=== PATIENT | male | born 1950 | race Caucasian/White ===

== ENCOUNTER 2020-12-21 09:50 | Emergency (ER) | payer OTHER ==
[~2020-12-21] VITALS: Ht 177.8 cm; Wt 90.7 kg
[2020-12-21 10:13] LABS: Source, Urine Catheter
[2020-12-21 10:20] LABS: Appearance, Urine Hazy (Clear); Bilirubin, Urine Neg (Neg); Blood, Urine 5+ (Neg); Color, Urine Amber (P-Yellow); Glucose Qualitative, Urine Neg (Neg); Ketones, Urine 2+ (Neg); Leukocyte Esterase, Urine 1+ (Neg); Nitrite, Urine Neg (Neg); Protein, Urine 3+ (Neg); Specific Gravity, Urine 1.025 (1.003-1.022); Urobilinogen, Urine NORM (Normal)
[2020-12-21 10:23] LABS: BASOPHILS ABSOLUTE AUTO 0.02 K/mm3 (0.00-0.23); BASOPHILS PERCENT AUTO 0 % (0-2); EOSINOPHILS PERCENT AUTO 0 % (0-6); Hematocrit 42.7 % (37.0-53.0); Hemoglobin 15.5 g/dL (13.5-17.5); IMMATURE GRAN ABSOLUTE AUTO 0.03 K/mm3 (0.00-0.10); IMMATURE GRAN PERCENT AUTO 0 % (0-1); LYMPHOCYTES ABSOLUTE AUTO 1.27 K/mm3 (0.84-5.20); LYMPHOCYTES PERCENT AUTO 14 % (21-46); MONOCYTES ABSOLUTE AUTO 0.95 K/mm3 (0.16-1.47); MONOCYTES PERCENT AUTO 10 % (4-13); Mean Corpuscular HGB 32.7 pg (26.0-34.0); Mean Corpuscular HGB Conc 36.3 g/dL (31.5-36.5); Mean Corpuscular Volume 90 fL (80-100); Mean Platelet Volume 9.9 fL (9.1-12.4); NEUTROPHILS ABSOLUTE AUTO 7.01 K/mm3 (1.96-9.15); NEUTROPHILS PERCENT AUTO 76 % (41-73); Platelet Count 148 K/mm3 (150-400); RDW Coefficient Variation 11.9 % (11.7-14.2); RDW Standard Deviation 39.5 fL (35.1-46.3); Red Blood Cell Count 4.74 M/mm3 (4.30-5.90); White Blood Cell Count 9.28 K/mm3 (4.00-11.30)
[2020-12-21 10:43] LABS: Granular Casts 0-2 /lpf (0); Hyaline Casts 50-100 /lpf (0-2)
[2020-12-21 10:45] LABS: Red Blood Cells, Urine 50-100 /hpf (0-2); Squamous Epithelial Cells Few /hpf (Few)
[2020-12-21 10:46] LABS: Amorphous Mod (0-Heavy); Bacteria Rare /hpf
[2020-12-21 10:55] LABS: Albumin, Blood 3.9 g/dL (3.4-5.0); Albumin/Globulin Ratio 1.1 (0.8-1.8); Bilirubin, Total 0.6 mg/dL (0.1-1.0); Bun/Creatinine Ratio 25.2 (12.0-20.0); Calcium, Blood 7.7 mg/dL (8.5-10.1); Creatinine, Blood 1.43 mg/dL (0.60-1.20); Globulin, Blood 3.7 g/dL (2.2-4.0); Potassium, Blood 2.7 mmol/L (3.5-5.5); Total Protein, Blood 7.6 g/dL (6.4-8.2); Troponin I 0.019 ng/mL (0.000-0.040)
[2020-12-21 11:53] LABS: U Amphetamine Screen Not Detected; U Barbituate Screen Not Detected; U Benzodiazapine Screen Not Detected; U Cocaine Screen Not Detected; U Methamphetamine Screen Not Detected
[2020-12-21 11:54] LABS: U Buprenorphine Screen Not Detected; U Cannabinoids Screen DETECTED; U Methadone Screen Not Detected; U Opiates Screen Not Detected; U Oxycodone Screen Not Detected; U Phencyclidine Screen Not Detected; U Propoxyphene Screen Not Detected
== END 2020-12-21 18:12 | disposition home or self-care (01) ==
LOC: ER 09:50
PROVIDERS: Emergency Medicine
DX: R41.0 Disorientation, unspecified (principal); Z91.040 Latex allergy status
CPT/HCPCS: 70450; 70551; 80053; 81001; 82607; 82746; 83735; 84443; 84484; 85025; 87086; 99285-25; A9270; J3480; J7120

== ENCOUNTER 2021-02-09 14:35 | Emergency (ER) | payer OTHER ==
[~2021-02-09] VITALS: Ht 172.7 cm; Wt 72.6 kg
[2021-02-09 15:23] LABS: BASOPHILS PERCENT AUTO 1 % (0-2); EOSINOPHILS ABSOLUTE AUTO 0.02 K/mm3 (0.00-0.68); EOSINOPHILS PERCENT AUTO 0 % (0-6); IMMATURE GRAN ABSOLUTE AUTO 0.04 K/mm3 (0.00-0.10); IMMATURE GRAN PERCENT AUTO 0 % (0-1); LYMPHOCYTES ABSOLUTE AUTO 2.57 K/mm3 (0.84-5.20); LYMPHOCYTES PERCENT AUTO 23 % (21-46); MONOCYTES ABSOLUTE AUTO 0.85 K/mm3 (0.16-1.47); MONOCYTES PERCENT AUTO 8 % (4-13); Mean Corpuscular HGB 32.3 pg (26.0-34.0); Mean Corpuscular HGB Conc 35.1 g/dL (31.5-36.5); Mean Corpuscular Volume 92 fL (80-100); NEUTROPHILS ABSOLUTE AUTO 7.68 K/mm3 (1.96-9.15); NEUTROPHILS PERCENT AUTO 68 % (41-73); Platelet Count 283 K/mm3 (150-400); RDW Coefficient Variation 13.4 % (11.7-14.2); RDW Standard Deviation 45.6 fL (35.1-46.3); Red Blood Cell Count 4.02 M/mm3 (4.30-5.90); White Blood Cell Count 11.26 K/mm3 (4.00-11.30)
[2021-02-09 15:59] LABS: Alanine Aminotransfer (ALT/SGP 41 U/L (12-78); Albumin, Blood 3.2 g/dL (3.4-5.0); Albumin/Globulin Ratio 0.8 (0.8-1.8); Alk Phos 88 U/L (50-136); Anion Gap 10 mmol/L (6-16); Aspartate Aminotrans (AST/SGOT 42 U/L (12-37); Bilirubin, Total 0.9 mg/dL (0.1-1.0); Blood Urea Nitrogen 10 mg/dL (8-24); Bun/Creatinine Ratio 15.8 (12.0-20.0); CO2, Blood 28 mmol/L (21-32); Calcium, Blood 6.9 mg/dL (8.5-10.1); Chloride, Blood 103 mmol/L (98-108); Creatinine, Blood 0.63 mg/dL (0.60-1.20); Globulin, Blood 4.1 g/dL (2.2-4.0); Glomerular Filtration Rate >60 (60-); Glucose, Blood 129 mg/dL (70-99); Potassium, Blood 2.7 mmol/L (3.5-5.5); Sodium, Blood 141 mmol/L (136-145); Total Protein, Blood 7.3 g/dL (6.4-8.2); Troponin I <0.015 ng/mL (0.000-0.040)
[2021-02-09 16:39] LABS: SARS-Cov-2 (COVID-19) PCR, MMC NEGATIVE (NEGATIVE)
[2021-02-09] MEDS ORDERED: DOXY100 PO (19:24)
== END 2021-02-09 20:41 | disposition home or self-care (01) ==
LOC: ER 14:35
PROVIDERS: Emergency Medicine
DX: J18.9 Pneumonia, unspecified organism (principal); Z20.822 Contact with and (suspected) exposure to COVID-19; J44.9 Chronic obstructive pulmonary disease, unspecified; F17.200 Nicotine dependence, unspecified, uncomplicated; Z91.040 Latex allergy status
CPT/HCPCS: 71045; 71260; 80053; 83880; 84484; 85025; 85379; 93005; 93010; 94640; 99285-25; A9270; Q9967; U0004

== ENCOUNTER 2021-02-20 10:21 | Observation (INO) | payer OTHER ==
[~2021-02-20] VITALS: Ht 170.2 cm; Wt 77.9 kg
[~2021-02-20 10:21] MED LIST: DOXY100 PO
[2021-02-20 10:45] LABS: BASOPHILS ABSOLUTE AUTO 0.12 K/mm3 (0.00-0.23); BASOPHILS PERCENT AUTO 1 % (0-2); EOSINOPHILS ABSOLUTE AUTO 0.09 K/mm3 (0.00-0.68); EOSINOPHILS PERCENT AUTO 1 % (0-6); Hematocrit 39.1 % (37.0-53.0); Hemoglobin 13.3 g/dL (13.5-17.5); IMMATURE GRAN ABSOLUTE AUTO 0.09 K/mm3 (0.00-0.10); IMMATURE GRAN PERCENT AUTO 1 % (0-1); LYMPHOCYTES PERCENT AUTO 24 % (21-46); MONOCYTES ABSOLUTE AUTO 0.67 K/mm3 (0.16-1.47); MONOCYTES PERCENT AUTO 5 % (4-13); Mean Corpuscular HGB 32.2 pg (26.0-34.0); Mean Corpuscular Volume 95 fL (80-100); Mean Platelet Volume 8.9 fL (9.1-12.4); NEUTROPHILS ABSOLUTE AUTO 9.66 K/mm3 (1.96-9.15); NEUTROPHILS PERCENT AUTO 69 % (41-73); Platelet Count 376 K/mm3 (150-400); RDW Coefficient Variation 13.2 % (11.7-14.2); RDW Standard Deviation 46.2 fL (35.1-46.3); Red Blood Cell Count 4.13 M/mm3 (4.30-5.90); White Blood Cell Count 14.03 K/mm3 (4.00-11.30)
[2021-02-20 11:12] LABS: Troponin I <0.015 ng/mL (0.000-0.040)
[2021-02-20 11:25] LABS: Alanine Aminotransfer (ALT/SGP 64 U/L (12-78); Albumin, Blood 3.2 g/dL (3.4-5.0); Albumin/Globulin Ratio 0.8 (0.8-1.8); Alk Phos 100 U/L (50-136); Anion Gap 22 mmol/L (6-16); Aspartate Aminotrans (AST/SGOT 44 U/L (12-37); Bilirubin, Total 0.7 mg/dL (0.1-1.0); Blood Urea Nitrogen 10 mg/dL (8-24); Bun/Creatinine Ratio 13.9 (12.0-20.0); CO2, Blood 15 mmol/L (21-32); Chloride, Blood 103 mmol/L (98-108); Creatinine, Blood 0.72 mg/dL (0.60-1.20); Glomerular Filtration Rate >60 (60-); Glucose, Blood 243 mg/dL (70-99); Magnesium, Blood 0.5 mg/dL (1.6-2.4); Phosphorus, Blood 2.2 mg/dL (2.5-4.9); Potassium, Blood 2.5 mmol/L (3.5-5.5); Sodium, Blood 140 mmol/L (136-145); Total Protein, Blood 7.2 g/dL (6.4-8.2)
[2021-02-20 11:56] LABS: Source, Urine Clean Catch
[2021-02-20 12:05] LABS: Appearance, Urine Clear (Clear); Bilirubin, Urine Neg (Neg); Blood, Urine 2+ (Neg); Color, Urine Yellow (P-Yellow); Glucose Qualitative, Urine Neg (Neg); Ketones, Urine 3+ (Neg); Leukocyte Esterase, Urine Neg (Neg); Nitrite, Urine Neg (Neg); Protein, Urine 2+ (Neg); Urobilinogen, Urine NORM (Normal)
[2021-02-20 12:21] LABS: U Amphetamine Screen Not Detected; U Barbituate Screen Not Detected; U Benzodiazapine Screen Not Detected; U Cocaine Screen Not Detected; U Methadone Screen Not Detected; U Methamphetamine Screen Not Detected; U Opiates Screen Not Detected; U Phencyclidine Screen Not Detected
[2021-02-20 12:22] LABS: U Buprenorphine Screen Not Detected; U Cannabinoids Screen DETECTED; U Oxycodone Screen Not Detected; U Propoxyphene Screen Not Detected
[2021-02-20 13:01] LABS: Bacteria Rare /hpf; Squamous Epithelial Cells Rare /hpf (Few); White Blood Cells, Urine 0-2 /hpf (0-5)
[2021-02-20] MEDS ORDERED: BIOTENE MOUTHWASH PO (13:44)
[2021-02-20] MEDS ORDERED: Norco 10-325 T1 EACH PO (13:44)
[2021-02-20] MEDS ORDERED: OMEP20ER PO (13:45)
[2021-02-20] MEDS ORDERED: Aspir 8181 MG PO (13:45)
[2021-02-20] MEDS ORDERED: METO50 PO (13:46)
[2021-02-20] MEDS ORDERED: Hair, Skin & N1 EACH PO (13:46)
[2021-02-20] MEDS ORDERED: QUETIAPINE FUM400 M2 PO (13:47)
[2021-02-20] MEDS ORDERED: ATOR40TA PO (13:48)
[2021-02-20] MEDS ORDERED: QUET100 PO (13:50)
[2021-02-20] MEDS ORDERED: GABA300 PO (13:51)
[2021-02-20 15:30] LABS: SARS-Cov-2 (COVID-19) PCR, MMC NEGATIVE (NEGATIVE)
--- NOTE | 2021-02-21 04:12 | NUR ---
SHIFT SUMMARY A/OX2, VERY [place]. DENIES PAIN OR SOB. UNSTEADY GAIT, 1 ASSIST WITH GB AND FWW. NAUSEA DURING BEGINNING OF SHIFT, MEDICATED PER EMAR. VSS, BED IN LOWEST POSITION WITH CALL LIGHT IN REACH. WILL CONTINUE TO MONITOR AND REPORT TO ONCOMING RN.
[2021-02-21 04:23] LABS: BASOPHILS ABSOLUTE AUTO 0.08 K/mm3 (0.00-0.23); BASOPHILS PERCENT AUTO 1 % (0-2); EOSINOPHILS ABSOLUTE AUTO 0.07 K/mm3 (0.00-0.68); EOSINOPHILS PERCENT AUTO 1 % (0-6); Hematocrit 34.2 % (37.0-53.0); Hemoglobin 11.9 g/dL (13.5-17.5); IMMATURE GRAN ABSOLUTE AUTO 0.03 K/mm3 (0.00-0.10); IMMATURE GRAN PERCENT AUTO 0 % (0-1); LYMPHOCYTES ABSOLUTE AUTO 2.68 K/mm3 (0.84-5.20); LYMPHOCYTES PERCENT AUTO 24 % (21-46); MONOCYTES ABSOLUTE AUTO 0.87 K/mm3 (0.16-1.47); MONOCYTES PERCENT AUTO 8 % (4-13); Mean Corpuscular HGB 32.2 pg (26.0-34.0); Mean Corpuscular HGB Conc 34.8 g/dL (31.5-36.5); Mean Corpuscular Volume 92 fL (80-100); Mean Platelet Volume 8.9 fL (9.1-12.4); NEUTROPHILS ABSOLUTE AUTO 7.24 K/mm3 (1.96-9.15); NEUTROPHILS PERCENT AUTO 66 % (41-73); Platelet Count 311 K/mm3 (150-400); RDW Coefficient Variation 13.3 % (11.7-14.2); RDW Standard Deviation 45.3 fL (35.1-46.3); White Blood Cell Count 10.97 K/mm3 (4.00-11.30)
[2021-02-21 04:51] LABS: Alanine Aminotransfer (ALT/SGP 49 U/L (12-78); Albumin/Globulin Ratio 1.1 (0.8-1.8); Alk Phos 81 U/L (50-136); Anion Gap 10 mmol/L (6-16); Aspartate Aminotrans (AST/SGOT 33 U/L (12-37); Bilirubin, Total 0.7 mg/dL (0.1-1.0); Blood Urea Nitrogen 6 mg/dL (8-24); Bun/Creatinine Ratio 8.7 (12.0-20.0); CO2, Blood 24 mmol/L (21-32); Calcium, Blood 6.6 mg/dL (8.5-10.1); Chloride, Blood 108 mmol/L (98-108); Creatinine, Blood 0.69 mg/dL (0.60-1.20); Globulin, Blood 2.8 g/dL (2.2-4.0); Glomerular Filtration Rate >60 (60-); Glucose, Blood 83 mg/dL (70-99); Magnesium, Blood 1.6 mg/dL (1.6-2.4); Phosphorus, Blood 3.5 mg/dL (2.5-4.9); Sodium, Blood 142 mmol/L (136-145); Total Protein, Blood 5.8 g/dL (6.4-8.2)
[2021-02-21] MEDS ORDERED: MAGNESIUM OXID500 MG PO (14:13)
[2021-02-21] MEDS ORDERED: LEVE500 PO (14:13)
--- NOTE | 2021-02-21 14:31 | NUR ---
AKHIL, CHIEF RADIATION THERAPIST, WENT OVER D/C INSTRUCTIONS WITH PATIENT'S . PATIENT REMOVED HIS OWN IV ANXIOUS TO GO HOME. PATIENT DISCHARGED HOME WITH .
== END 2021-02-21 14:15 | disposition home or self-care (01) ==
LOC: ER 10:21 → MEDS 10:22
PROVIDERS: Emergency Medicine; Nurse Practitioner Acute Care; ADMIT Internal Medicine
DX: G40.89 Other seizures (principal); E83.42 Hypomagnesemia; E87.6 Hypokalemia; E83.39 Other disorders of phosphorus metabolism; F43.10 Post-traumatic stress disorder, unspecified; D72.829 Elevated white blood cell count, unspecified; I10 Essential (primary) hypertension; J44.9 Chronic obstructive pulmonary disease, unspecified; E78.5 Hyperlipidemia, unspecified; K21.9 Gastro-esophageal reflux disease without esophagitis; F17.210 Nicotine dependence, cigarettes, uncomplicated; Z66 Do not resuscitate; Z86.16 Personal history of COVID-19; Z86.73 Personal history of transient ischemic attack (TIA), and cerebral infarction without residual deficits; Z91.040 Latex allergy status; Z79.82 Long term (current) use of aspirin; Z79.899 Other long term (current) drug therapy
CPT/HCPCS: 36415; 70450; 71045; 80053; 81001; 83735; 84100; 84132; 84145; 84484; 85025; 93005; 93010; 96365; 96366; 96367; 96368; 96372; 96375; 96376; 99285-25; A9270; G0378; G0480; J1644; J1953; J2060; J2405; J2765; J3475; J3480; J7030; J7050; J7060; U0004

== ENCOUNTER 2022-01-31 18:13 | Inpatient (IN) | payer OTHER ==
[~2022-01-31] VITALS: Ht 172.7 cm; Wt 74.2 kg
[~2022-01-31 18:13] MED LIST changes: +ATOR40TA PO; +Aspir 8181 MG PO; +BIOTENE MOUTHWASH PO; +GABA300 PO; +Hair, Skin & N1 EACH PO; +LEVE500 PO; +MAGNESIUM OXID500 MG PO; +METO50 PO; +Norco 10-325 T1 EACH PO; +OMEP20ER PO; +QUET100 PO; +QUETIAPINE FUM400 M2 PO
[2022-01-31 18:36] LABS: BASOPHILS ABSOLUTE AUTO 0.13 K/mm3 (0.00-0.23); BASOPHILS PERCENT AUTO 1 % (0-2); EOSINOPHILS ABSOLUTE AUTO 0.05 K/mm3 (0.00-0.68); EOSINOPHILS PERCENT AUTO 0 % (0-6); Hematocrit 35.9 % (37.0-53.0); Hemoglobin 12.7 g/dL (13.5-17.5); IMMATURE GRAN ABSOLUTE AUTO 0.06 K/mm3 (0.00-0.10); IMMATURE GRAN PERCENT AUTO 1 % (0-1); LYMPHOCYTES ABSOLUTE AUTO 3.34 K/mm3 (0.84-5.20); LYMPHOCYTES PERCENT AUTO 25 % (21-46); MONOCYTES PERCENT AUTO 7 % (4-13); Mean Corpuscular HGB 32.6 pg (26.0-34.0); Mean Corpuscular HGB Conc 35.4 g/dL (31.5-36.5); Mean Corpuscular Volume 92 fL (80-100); Mean Platelet Volume 9.2 fL (9.1-12.4); NEUTROPHILS ABSOLUTE AUTO 8.79 K/mm3 (1.96-9.15); NEUTROPHILS PERCENT AUTO 66 % (41-73); Platelet Count 244 K/mm3 (150-400); RDW Coefficient Variation 12.2 % (11.7-14.2); RDW Standard Deviation 41.1 fL (35.1-46.3); Red Blood Cell Count 3.89 M/mm3 (4.30-5.90); White Blood Cell Count 13.27 K/mm3 (4.00-11.30)
[2022-01-31 18:50] LABS: Albumin, Blood 3.5 g/dL (3.4-5.0); Albumin/Globulin Ratio 1.1 (0.8-1.8); Bilirubin, Total 0.5 mg/dL (0.1-1.0); Calcium, Blood 6.8 mg/dL (8.5-10.1); Creatinine, Blood 0.67 mg/dL (0.60-1.20); Globulin, Blood 3.1 g/dL (2.2-4.0); Potassium, Blood 2.6 mmol/L (3.5-5.5); Total Protein, Blood 6.6 g/dL (6.4-8.2)
[2022-01-31 20:15] LABS: Magnesium, Blood 0.3 mg/dL (1.6-2.4); Phosphorus, Blood 2.8 mg/dL (2.5-4.9)
[2022-01-31] MEDS ORDERED: OMEP20ER PO (23:58)
[2022-02-01] MEDS ORDERED: MIRT15 PO (00:01)
[2022-02-01] MEDS ORDERED: ALBU2.5V5 INH (00:04)
[2022-02-01] MEDS ORDERED: DICLOFENAC SOD100 GM (00:06)
[2022-02-01 05:05] LABS: Adenovirus F 40/41 Not Detected (NOT DETECT); Astrovirus Not Detected (NOT DETECT); Campylobacter Sp Not Detected (NOT DETECT); Cryptosporidium Not Detected (NOT DETECT); Cyclospora Cayetanensis Not Detected (NOT DETECT); E. Coli O157 Not Detected (NOT DETECT); Entamoeba Histolytica Not Detected (NOT DETECT); Enteroaggregative E. coli-EAEC Not Detected (NOT DETECT); Enteropathogenic E. coli-EPEC Not Detected (NOT DETECT); Enterotoxigenic E. coli-ETEC Not Detected (NOT DETECT); Giardia Lamblia Not Detected (NOT DETECT); Norovirus GI/GII Not Detected (NOT DETECT); Plesiomonas Shigelloides Not Detected (NOT DETECT); Rotavirus A Not Detected (NOT DETECT); Salmonella Sp Not Detected (NOT DETECT); Sapovirus Not Detected (NOT DETECT); Shiga Toxin-prod E. coli-STEC Not Detected (NOT DETECT); Shigella/Enteroin E. coli-EIEC Not Detected (NOT DETECT); Vibrio Cholerae Not Detected (NOT DETECT); Vibrio Sp Not Detected (NOT DETECT); Yersinia Enterocolitica Not Detected (NOT DETECT)
--- NOTE | 2022-02-01 06:30 | NUR ---
SHIFT SUMMARY NEW ADMIT NEURO: A&OX3. POOR HISTORIAN AND CONFUSION. SLOW TO RESPOND. NUMBNESS/TINGLING. FINE TREMORS TO ALL FOUR EXTREMITIES TO LEFT HAND AND BILATERAL FEET. ANXIOUS OVERNIGHT. PATIENT HAS NOT SLEPT. CARDIAC: NSR. NORMOTENSIVE. NO COMPLAINTS OF CHEST PAIN. RESPIRATORY: ROOM AIR. BREATH SOUNDS CLEAR. NO COMPLAINTS OF SOB/DYSPNEA GI/: CONTINENT. MULTIPLE TRIPS UP TO BATHROOM DUE TO DIARRHEA. MUSCULOSKELETAL: MOVES ALL FOUR EXTREMITIES. WALKS TO BATHROOM, ONE PERSON ASSIST. UNSTEADY GAIT. INTEGUMENTARY: INTACT.
[2022-02-01 10:06] LABS: Magnesium, Blood 1.4 mg/dL (1.6-2.4)
[2022-02-01 10:17] LABS: Bun/Creatinine Ratio 9.8 (12.0-20.0); Calcium, Blood 7.6 mg/dL (8.5-10.1); Creatinine, Blood 0.61 mg/dL (0.60-1.20); Potassium, Blood 3.9 mmol/L (3.5-5.5)
--- NOTE | 2022-02-01 17:34 | NUR ---
SHIFT SUMMARY PT A/OX3 AND COOPERATIVE OF CARE. HX OF DEMENTIA, PT VERY FORGETFUL, WILL FORGET QUESTIONS THAT WERE ASKED BY STAFF AND NEED TO RE-ASKED BY STAFF. VSS THROUGHOUT SHIFT O2 STS IN THE HIGH 90'S ON RA. NO REPORT OF CHEST PAIN/PRESSURE THROUGHOUT SHIFT. NO REPORT OF SOB/DYSPNEA THROUGHOUT SHIFT. PT UP TO BATHROOM MULTIPLE TIMES, SBA, TOLERATES WELL. PT STILL HAVING LIQUID STOOLS, STOOL SAMPLE NEEDED, WILL FORWARD TO NOC STAFF. PT VERY [place] WITHOUT HEARING AIDS, TOOK HEARING AIDS HOME TO CHARGE THEM.
--- NOTE | 2022-02-02 05:50 | NUR ---
NO ACUTE EVENTS OVER NIGHT. STOOL SAMPLE OBTAINED/SENT. PT ON ROOM AIR. PT HAD 2.2 SECOND HEART PAUSE ONE TIME WITH NO SYMPTOMS BEFORE OR AFTERWARDS. RIGHT FA IV INTACT. CONTACT PRECAUTIONS MAINTAINED. NO COMPLAINTS
[2022-02-02 08:06] LABS: Hematocrit 37.5 % (37.0-53.0); Hemoglobin 13.3 g/dL (13.5-17.5); Mean Corpuscular HGB 33.1 pg (26.0-34.0); Mean Corpuscular HGB Conc 35.5 g/dL (31.5-36.5); Mean Corpuscular Volume 93 fL (80-100); Platelet Count 261 K/mm3 (150-400); RDW Coefficient Variation 12.3 % (11.7-14.2); RDW Standard Deviation 42.5 fL (35.1-46.3); Red Blood Cell Count 4.02 M/mm3 (4.30-5.90); White Blood Cell Count 10.86 K/mm3 (4.00-11.30)
[2022-02-02 08:22] LABS: Albumin, Blood 3.4 g/dL (3.4-5.0); Anion Gap 7 mmol/L (6-16); Blood Urea Nitrogen 13 mg/dL (8-24); Bun/Creatinine Ratio 19.6 (12.0-20.0); CO2, Blood 24 mmol/L (21-32); Calcium, Blood 7.9 mg/dL (8.5-10.1); Chloride, Blood 109 mmol/L (98-108); Creatinine, Blood 0.66 mg/dL (0.60-1.20); Glomerular Filtration Rate 100 (60-); Glucose, Blood 118 mg/dL (70-99); Phosphorus, Blood 2.7 mg/dL (2.5-4.9); Potassium, Blood 3.4 mmol/L (3.5-5.5); Sodium, Blood 140 mmol/L (136-145)
[2022-02-02] MEDS ORDERED: VISBIOME 112.51 EACH PO (16:42)
[2022-02-02] MEDS ORDERED: CALCIUM CIT 311 EAC7 PO (16:43)
--- NOTE | 2022-02-02 17:06 | NUR ---
DISCHARGE UPDATE DISCHARGE PACKET GONE OVER WITH PT AND PT AT 1700. PT LEFT AT 1705, PT REFUSED TO USE WHEELCHAIR DURING DISCHARGE AND WALKED OUT WITH HIS . PT ON RA DURING DISCHARGE. DISHARGE PACKET AND PERSONAL BELONGINGS WITH PT AND HIS DURING DISCHARGE.
== END 2022-02-02 18:15 | disposition home or self-care (01) | DRG 641 ==
LOC: ER 18:13 → PCU 23:38
PROVIDERS: Emergency Medicine; Internal Medicine; Student in an Organized Health Care Education/Training Program; ADMIT Family Medicine
DX: E87.6 Hypokalemia (principal); E83.42 Hypomagnesemia; E83.51 Hypocalcemia; F43.10 Post-traumatic stress disorder, unspecified; I10 Essential (primary) hypertension; F03.90 Unspecified dementia, unspecified severity, without behavioral disturbance, psychotic disturbance, mood disturbance, and anxiety; E78.00 Pure hypercholesterolemia, unspecified; J44.9 Chronic obstructive pulmonary disease, unspecified; G40.409 Other generalized epilepsy and epileptic syndromes, not intractable, without status epilepticus; F17.210 Nicotine dependence, cigarettes, uncomplicated; F12.10 Cannabis abuse, uncomplicated; K21.9 Gastro-esophageal reflux disease without esophagitis; R19.7 Diarrhea, unspecified; F32.A Depression, unspecified; Z86.73 Personal history of transient ischemic attack (TIA), and cerebral infarction without residual deficits; Z91.040 Latex allergy status; Z79.891 Long term (current) use of opiate analgesic; Z79.02 Long term (current) use of antithrombotics/antiplatelets; Z79.82 Long term (current) use of aspirin; Z79.899 Other long term (current) drug therapy; Z98.890 Other specified postprocedural states; Z87.01 Personal history of pneumonia (recurrent)
CPT/HCPCS: 36415; 70450; 80048; 80053; 80069; 82330; 82947; 83735; 84100; 84132; 85025; 85027; 87507; 93005; 93010; 94640; 94664; 94760; A9270; J0360; J0610; J1650; J3475; J3480; J7050

== ENCOUNTER 2023-04-24 18:39 | Inpatient (IN) | payer OTHER, MEDICARE ==
[~2023-04-24] VITALS: Ht 172.7 cm; Wt 74.8 kg
[~2023-04-24 18:39] MED LIST changes: +ALBU2.5V5 INH; +ARTHRITIS PAIN150 GM TOP; +CALCIUM CIT 311 EAC7 PO; +MIRT15 PO; +VISBIOME 112.51 EACH PO
[2023-04-24 20:20] LABS: BASOPHILS PERCENT AUTO 1 % (0-2); EOSINOPHILS ABSOLUTE AUTO 0.01 K/mm3 (0.00-0.68); EOSINOPHILS PERCENT AUTO 0 % (0-6); Hematocrit 46.9 % (37.0-53.0); Hemoglobin 17.3 g/dL (13.5-17.5); IMMATURE GRAN ABSOLUTE AUTO 0.08 K/mm3 (0.00-0.10); IMMATURE GRAN PERCENT AUTO 0 % (0-1); LYMPHOCYTES ABSOLUTE AUTO 2.64 K/mm3 (0.84-5.20); LYMPHOCYTES PERCENT AUTO 13 % (21-46); MONOCYTES ABSOLUTE AUTO 1.53 K/mm3 (0.16-1.47); MONOCYTES PERCENT AUTO 8 % (4-13); Mean Corpuscular HGB 32.9 pg (26.0-34.0); Mean Corpuscular HGB Conc 36.9 g/dL (31.5-36.5); Mean Corpuscular Volume 89 fL (80-100); Mean Platelet Volume 8.7 fL (9.1-12.4); NEUTROPHILS ABSOLUTE AUTO 15.33 K/mm3 (1.96-9.15); NEUTROPHILS PERCENT AUTO 78 % (41-73); Platelet Count 316 K/mm3 (150-400); RDW Coefficient Variation 12.1 % (11.7-14.2); RDW Standard Deviation 39.6 fL (35.1-46.3); Red Blood Cell Count 5.26 M/mm3 (4.30-5.90); White Blood Cell Count 19.69 K/mm3 (4.00-11.30)
[2023-04-24 20:24] LABS: Appearance, Urine Hazy (Clear); Blood, Urine 4+ (Neg); Color, Urine Yellow (P-Yellow); Glucose Qualitative, Urine Neg (Neg); Ketones, Urine 4+ (Neg); Leukocyte Esterase, Urine 2+ (Neg); Nitrite, Urine Neg (Neg); Protein, Urine 3+ (Neg); Source, Urine Clean Catch; Specific Gravity, Urine 1.025 (1.003-1.022); Urobilinogen, Urine 2+ (Normal)
[2023-04-24 20:36] LABS: Bilirubin, Urine 1+ (Neg)
[2023-04-24 20:38] LABS: Amorphous Light (0-Heavy); Bacteria Mod /hpf; Mucus Light (0-Heavy); Red Blood Cells, Urine 0-2 /hpf (0-2); Squamous Epithelial Cells Few /hpf (Few)
[2023-04-24 20:47] LABS: Albumin, Blood 4.3 g/dL (3.4-5.0); Bilirubin, Total 0.8 mg/dL (0.1-1.0); Calcium, Blood 9.5 mg/dL (8.5-10.1); Creatinine, Blood 0.86 mg/dL (0.60-1.20); Globulin, Blood 4.1 g/dL (2.2-4.0); Potassium, Blood 3.5 mmol/L (3.5-5.5); Total Protein, Blood 8.4 g/dL (6.4-8.2)
[2023-04-24 21:17] LABS: Influenza A, PCR NEGATIVE (NEGATIVE); Influenza B, PCR NEGATIVE (NEGATIVE); Resp Syncytial Virus, PCR NEGATIVE (NEGATIVE); SARS-Cov-2 (COVID-19) PCR, MMC NEGATIVE (NEGATIVE)
[2023-04-25 02:07] VITALS: BP 144/107
[2023-04-25 03:36] LABS: BASOPHILS ABSOLUTE AUTO 0.07 K/mm3 (0.00-0.23); BASOPHILS PERCENT AUTO 0 % (0-2); EOSINOPHILS PERCENT AUTO 0 % (0-6); Hematocrit 46.5 % (37.0-53.0); Hemoglobin 16.7 g/dL (13.5-17.5); IMMATURE GRAN ABSOLUTE AUTO 0.06 K/mm3 (0.00-0.10); IMMATURE GRAN PERCENT AUTO 0 % (0-1); LYMPHOCYTES ABSOLUTE AUTO 2.34 K/mm3 (0.84-5.20); LYMPHOCYTES PERCENT AUTO 13 % (21-46); MONOCYTES ABSOLUTE AUTO 1.62 K/mm3 (0.16-1.47); MONOCYTES PERCENT AUTO 9 % (4-13); Mean Corpuscular HGB 32.7 pg (26.0-34.0); Mean Corpuscular HGB Conc 35.9 g/dL (31.5-36.5); Mean Corpuscular Volume 91 fL (80-100); Mean Platelet Volume 8.7 fL (9.1-12.4); NEUTROPHILS ABSOLUTE AUTO 14.44 K/mm3 (1.96-9.15); NEUTROPHILS PERCENT AUTO 78 % (41-73); Platelet Count 308 K/mm3 (150-400); RDW Coefficient Variation 12.2 % (11.7-14.2); RDW Standard Deviation 40.5 fL (35.1-46.3); Red Blood Cell Count 5.11 M/mm3 (4.30-5.90); White Blood Cell Count 18.53 K/mm3 (4.00-11.30)
[2023-04-25] MEDS ORDERED: IPRAT-ALBUT 0.5-3 ML INH (03:49)
[2023-04-25] MEDS ORDERED: [UNRECOGNIZED DRUG - OTHER] MT (03:51)
[2023-04-25] MEDS ORDERED: FAMO40 PO (03:52)
[2023-04-25] MEDS ORDERED: THERA-D2000 UNIT PO (03:53)
[2023-04-25] MEDS ORDERED: BIOTENE MOUTHWASH MT (03:56)
[2023-04-25 03:57] LABS: Albumin, Blood 4.2 g/dL (3.4-5.0); Albumin/Globulin Ratio 1.1 (0.8-1.8); Bilirubin, Total 0.7 mg/dL (0.1-1.0); Bun/Creatinine Ratio 22.8 (12.0-20.0); Creatinine, Blood 0.88 mg/dL (0.60-1.20); Globulin, Blood 3.9 g/dL (2.2-4.0); Potassium, Blood 3.4 mmol/L (3.5-5.5); Total Protein, Blood 8.1 g/dL (6.4-8.2)
[2023-04-25] MEDS ORDERED: MAGNESIUM CHLORIDE PO (03:58)
[2023-04-25] MEDS ORDERED: NARCAN4 M1 (04:01)
--- NOTE | 2023-04-25 04:22 | NUR ---
SHIFT SUMMARY GLORY ARRIVED FROM THE ED AT 0130. HE WAS ALERT AND FULLY ORIENTED AND ABLE TO AMBULATE INDEPENDENTLY. PT DIAGNOSIS IS UTI, HE HAS SOME GENERALIZED MALAISE AND SOME SUPRAPUBIC DISCOMFORT. PT ADMIT COMPLETED, ORIENTED TO ROOM AND CALL LIGHT. PT IS ON TELE RUNNING SINUS TACHYCARDIA RANGING FROM 80'S-120'S. PT INDEPENDENT IN ROOM, NO ACUTE EVENTS TONIGHT, NO NOTED CHANGES IN CONDITION. PT RESTING IN BED AT A LOW POSITION WITH CALL LIGHT IN REACH
[2023-04-25 07:39] VITALS: BP 164/118
[2023-04-25 15:31] VITALS: BP 146/90
--- NOTE | 2023-04-25 17:18 | NUR ---
PT IS ALERT ORIENTED TO SELF FAMILY AND SITUATION, HAS MILD DEMENTIA/FORGETFULLNESS. PT HAS BEEN UP IND IN HIS ROOM. THIS AM THE PT WAS EXPERIANCING DIAPHORISIS AND NAUSEA STATED THAT HE DID NOT FELL WELL . THE PTS HR WAS UP TO THE 120'S. DR. SOLANO CAME TO EVALUATE THE PT. THE PT WAS GIVEN IV FLUIDS AND ZOFRAN. AFTER A SHORT NAP THE PT AWOKE AND STATED THAT HE FELT MUCH BETTER, HR PER TELE WAS IN THE 90'S. PT DENIES ANY PAIN OR NAUSEA AT THIS TIME, CALL LIGHT IN REACH
[2023-04-25 19:48] VITALS: BP 134/85
--- NOTE | 2023-04-26 03:22 | NUR ---
QUARTER SUPERVISOR SUMMARY VSS. RECEIVED INCREASED DOSE OF HS SEROQUEL (PTS USUAL DOSE AT HOME). MED EFFECTIVE, WENT TO SLEEP EARLIER AND FOR LONGER PERIODS OF TIME THAN THAT NOTED 24 HR AGO. HOWEVER, STILL UP TO BATHROOM ON OCCASIONS. SOME ATTEMPTS TO PULL OFF MED TELE. INTERMITTENT REDIRECTION GIVEN. IVF INFUSING ORDERED. CURRENTLY RESTING QUIETLY IN BED. CALL LIGHT IN REACH. RAILS UP X 2 FOR SAFETY. WILL CONTINUE TO MONITOR. MED TELE SR AT 76
[2023-04-26 03:35] VITALS: BP 154/81
[2023-04-26 06:08] LABS: BASOPHILS ABSOLUTE AUTO 0.05 K/mm3 (0.00-0.23); BASOPHILS PERCENT AUTO 0 % (0-2); EOSINOPHILS PERCENT AUTO 0 % (0-6); Hematocrit 41.2 % (37.0-53.0); Hemoglobin 14.6 g/dL (13.5-17.5); IMMATURE GRAN ABSOLUTE AUTO 0.14 K/mm3 (0.00-0.10); IMMATURE GRAN PERCENT AUTO 1 % (0-1); LYMPHOCYTES ABSOLUTE AUTO 2.19 K/mm3 (0.84-5.20); LYMPHOCYTES PERCENT AUTO 12 % (21-46); MONOCYTES PERCENT AUTO 8 % (4-13); Mean Corpuscular HGB 33.1 pg (26.0-34.0); Mean Corpuscular HGB Conc 35.4 g/dL (31.5-36.5); Mean Corpuscular Volume 93 fL (80-100); NEUTROPHILS PERCENT AUTO 78 % (41-73); Platelet Count 235 K/mm3 (150-400); RDW Coefficient Variation 12.1 % (11.7-14.2); RDW Standard Deviation 42.5 fL (35.1-46.3); Red Blood Cell Count 4.41 M/mm3 (4.30-5.90); White Blood Cell Count 17.88 K/mm3 (4.00-11.30)
[2023-04-26 07:06] LABS: Albumin, Blood 3.5 g/dL (3.4-5.0); Anion Gap 7 mmol/L (6-16); Blood Urea Nitrogen 15 mg/dL (8-24); Bun/Creatinine Ratio 20.6 (12.0-20.0); CO2, Blood 21 mmol/L (21-32); Chloride, Blood 110 mmol/L (98-108); Creatinine, Blood 0.73 mg/dL (0.60-1.20); Glomerular Filtration Rate 97 (60-); Glucose, Blood 128 mg/dL (70-99); Magnesium, Blood 1.6 mg/dL (1.6-2.4); Phosphorus, Blood 2.2 mg/dL (2.5-4.9); Potassium, Blood 3.3 mmol/L (3.5-5.5); Sodium, Blood 138 mmol/L (136-145)
[2023-04-26 07:33] VITALS: BP 175/87
[2023-04-26 15:42] VITALS: BP 132/87
--- NOTE | 2023-04-26 18:45 | NUR ---
PT IS A/O X2-3, PT HAD PERIODS OF FORGETFULLNESS T/O THE DAY IN WHICH HE WOUL DISCONNECT AND EVENTUALY PULLED OUT HIS IV. AND ALSO REMOVED HIS TELE SEVERAL TIMES NOT REALIZING WHAT HE WAS DOING. PT HAD N/V T/O THE MORNING. AND THEN DIARRHEA THIS AFTERNOON. PT WAS SET UP FOR A SHOWER. PT WAS MEDICATED FOR N/V X2 TODAY. CALL LIGHT IN REACH. BED IN THE LOW POSITION. PT IS UP IND STEADY ON HIS FEET
[2023-04-26 19:41] VITALS: BP 154/92
[2023-04-27 05:16] VITALS: BP 126/90
[2023-04-27 06:24] LABS: BASOPHILS ABSOLUTE AUTO 0.09 K/mm3 (0.00-0.23); BASOPHILS PERCENT AUTO 1 % (0-2); EOSINOPHILS PERCENT AUTO 1 % (0-6); Hematocrit 40.4 % (37.0-53.0); Hemoglobin 14.2 g/dL (13.5-17.5); IMMATURE GRAN ABSOLUTE AUTO 0.03 K/mm3 (0.00-0.10); IMMATURE GRAN PERCENT AUTO 0 % (0-1); LYMPHOCYTES ABSOLUTE AUTO 4.12 K/mm3 (0.84-5.20); LYMPHOCYTES PERCENT AUTO 31 % (21-46); MONOCYTES ABSOLUTE AUTO 1.44 K/mm3 (0.16-1.47); MONOCYTES PERCENT AUTO 11 % (4-13); Mean Corpuscular HGB 32.7 pg (26.0-34.0); Mean Corpuscular HGB Conc 35.1 g/dL (31.5-36.5); Mean Corpuscular Volume 93 fL (80-100); Mean Platelet Volume 9.1 fL (9.1-12.4); NEUTROPHILS ABSOLUTE AUTO 7.56 K/mm3 (1.96-9.15); NEUTROPHILS PERCENT AUTO 57 % (41-73); Platelet Count 229 K/mm3 (150-400); RDW Coefficient Variation 12.1 % (11.7-14.2); RDW Standard Deviation 41.6 fL (35.1-46.3); Red Blood Cell Count 4.34 M/mm3 (4.30-5.90); White Blood Cell Count 13.34 K/mm3 (4.00-11.30)
[2023-04-27 06:35] LABS: Albumin, Blood 3.2 g/dL (3.4-5.0); Anion Gap 6 mmol/L (6-16); Blood Urea Nitrogen 15 mg/dL (8-24); CO2, Blood 22 mmol/L (21-32); Calcium, Blood 8.5 mg/dL (8.5-10.1); Chloride, Blood 114 mmol/L (98-108); Creatinine, Blood 0.65 mg/dL (0.60-1.20); Glomerular Filtration Rate 100 (60-); Glucose, Blood 114 mg/dL (70-99); Magnesium, Blood 1.8 mg/dL (1.6-2.4); Phosphorus, Blood 2.7 mg/dL (2.5-4.9); Potassium, Blood 3.4 mmol/L (3.5-5.5); Sodium, Blood 142 mmol/L (136-145)
--- NOTE | 2023-04-27 07:25 | NUR ---
SHIFT SUMMARY. PATIENT IS AOX2 WITH FORGETFULLNESS/CONFUSION-EASILY REDIRECTABLE. PATIENT REMOVED TELE ON SEVERAL OCCASSION, TELE PADS REPLACED AND TELE LEADS IN PLACE. PATIENT IS PLEASANT AND COOPERATIVE WITH CARE. PATIENT IS [place]. PATIENT CURRENTLY HAS BED ALARM ENGAGED TO NOTIFY STAFF WHEN PATIENT GETS UP TO THE BATHROOM IN ORDER TO OBTAIN A STOOL SAMPLE. PATIENT SLEPT T/O NIGHT FROM 0000 ON WITH RESPIRATIONS EQUAL AND UNLABORED. BED IS LOCKED IN THE LOWEST POSITION WITH CALL LIGHT IN REACH. NO S/S OF DISTRESS NOTED AT THIS TIME.
[2023-04-27 07:47] VITALS: BP 115/72
[2023-04-27 16:01] VITALS: BP 123/83
--- NOTE | 2023-04-27 17:12 | NUR ---
PT AOX3 AND COOPERATIVE OF CARE. PT IS INDEPENDENT IN ROOM. PT WAS SEEN WALKING OUT WITH . NOTIFIED DR MONZON OF PT LEAVING FLOOR AND THE HIGH CHANCE HE HAD WENT OUTSIDE WITH TO SMOKE. DR MONZON ORDERED A NICOTIINE PATCH AND PT WAS EDUCATED ON THE REASON WHY GOING OUTSIDE IS NOT ENCOURAGE AND AGAING THAT THIS IS A SMOKE FREE CAMPUS. PT VERBALIZED HIS UNDERSTANDING AND ACCEPTED NICOTINE PATCH. CALL LIGHT IS WITHIN REACH WILL CONTINUE TO MONITOR.
[2023-04-27 19:56] VITALS: BP 154/76
--- NOTE | 2023-04-28 03:52 | NUR ---
SHIFT SUMMARY. PATIENT IS AOX2 WITH FORGETFULNESS. PATIENT IS INDEPENDENT IN ROOM. PATIENT TAKES MEDS WHOLE WITH WATER. PATIENT DENIES PAIN. PATIENT STATES HE WOULD LIKE TO GO HOME-THIS RN TALKED TO PATIENT AND THE NEED TO BE IN THE HOSPITAL FOR PENDING STOOL RESULTS-PATIENT UNDERSTOOD AND REDIRECTED. PATIENT IS ABLE TO MAKE HIS NEEDS KNOWN. PATIENT IS PLEASANT AND COOPERATIVE WITH CARE. BED IS LOCKED IN THE LOWEST POSITION WITH CALL LIGHT IN REACH. NO S/S OF DISTRESS NOTED AT THIS TIME. CARE ONGOING.
[2023-04-28 04:44] VITALS: BP 131/82
[2023-04-28 05:52] LABS: Adenovirus F 40/41 Not Detected (NOT DETECT); Astrovirus Not Detected (NOT DETECT); Campylobacter Sp Not Detected (NOT DETECT); Cryptosporidium Not Detected (NOT DETECT); Cyclospora Cayetanensis Not Detected (NOT DETECT); E. Coli O157 Not Detected (NOT DETECT); Entamoeba Histolytica Not Detected (NOT DETECT); Enteroaggregative E. coli-EAEC Not Detected (NOT DETECT); Enteropathogenic E. coli-EPEC Not Detected (NOT DETECT); Enterotoxigenic E. coli-ETEC Not Detected (NOT DETECT); Giardia Lamblia Not Detected (NOT DETECT); Norovirus GI/GII Not Detected (NOT DETECT); Plesiomonas Shigelloides Not Detected (NOT DETECT); Rotavirus A Not Detected (NOT DETECT); Salmonella Sp Not Detected (NOT DETECT); Sapovirus Not Detected (NOT DETECT); Shiga Toxin-prod E. coli-STEC Not Detected (NOT DETECT); Shigella/Enteroin E. coli-EIEC Not Detected (NOT DETECT); Vibrio Cholerae Not Detected (NOT DETECT); Vibrio Sp Not Detected (NOT DETECT); Yersinia Enterocolitica Not Detected (NOT DETECT)
[2023-04-28 07:45] VITALS: BP 104/75
[2023-04-28 08:20] LABS: BASOPHILS ABSOLUTE AUTO 0.16 K/mm3 (0.00-0.23); BASOPHILS PERCENT AUTO 1 % (0-2); EOSINOPHILS ABSOLUTE AUTO 0.16 K/mm3 (0.00-0.68); EOSINOPHILS PERCENT AUTO 1 % (0-6); Hematocrit 42.2 % (37.0-53.0); Hemoglobin 15.1 g/dL (13.5-17.5); Mean Corpuscular HGB 32.8 pg (26.0-34.0); Mean Corpuscular HGB Conc 35.8 g/dL (31.5-36.5); Mean Corpuscular Volume 92 fL (80-100); Mean Platelet Volume 8.8 fL (9.1-12.4); Platelet Count 247 K/mm3 (150-400); RDW Coefficient Variation 11.9 % (11.7-14.2); RDW Standard Deviation 40.2 fL (35.1-46.3); Red Blood Cell Count 4.61 M/mm3 (4.30-5.90); White Blood Cell Count 14.26 K/mm3 (4.00-11.30)
[2023-04-28 08:39] LABS: Bun/Creatinine Ratio 29.5 (12.0-20.0); Creatinine, Blood 0.65 mg/dL (0.60-1.20); Potassium, Blood 3.4 mmol/L (3.5-5.5)
[2023-04-28 08:44] LABS: IMMATURE GRAN ABSOLUTE AUTO 0.05 K/mm3 (0.00-0.10); IMMATURE GRAN PERCENT AUTO 0 % (0-1); LYMPHOCYTES ABSOLUTE AUTO 4.42 K/mm3 (0.84-5.20); LYMPHOCYTES PERCENT AUTO 31 % (21-46); MONOCYTES ABSOLUTE AUTO 1.32 K/mm3 (0.16-1.47); MONOCYTES PERCENT AUTO 9 % (4-13); NEUTROPHILS ABSOLUTE AUTO 8.15 K/mm3 (1.96-9.15); NEUTROPHILS PERCENT AUTO 57 % (41-73)
--- NOTE | 2023-04-28 11:07 | NUR ---
PT DISCHARGE AT 1055. ALL PAPER WORK WAS REVIEWED AND EDUCATIONAL MATERIAL WAS GIVEN TO PT. PT INDEPENDENT AND READY TO GO. NO DISTRESS NOTED. TO TRANSFER PT HOME. PT REFUSED ESCORT OUT WITH WHEELCHAIR.
== END 2023-04-28 11:00 | disposition home or self-care (01) | DRG 872 ==
LOC: ER 18:39 → ERHOLD 18:40 → MEDS 04-25 01:35
PROVIDERS: Emergency Medicine; Internal Medicine; ADMIT Student in an Organized Health Care Education/Training Program
DX: A41.89 Other specified sepsis (principal); E87.20 Acidosis, unspecified; A08.4 Viral intestinal infection, unspecified; E87.6 Hypokalemia; E83.39 Other disorders of phosphorus metabolism; E83.42 Hypomagnesemia; F03.B0 Unspecified dementia, moderate, without behavioral disturbance, psychotic disturbance, mood disturbance, and anxiety; G40.909 Epilepsy, unspecified, not intractable, without status epilepticus; F43.10 Post-traumatic stress disorder, unspecified; K21.9 Gastro-esophageal reflux disease without esophagitis; J44.9 Chronic obstructive pulmonary disease, unspecified; F17.210 Nicotine dependence, cigarettes, uncomplicated; R65.20 Severe sepsis without septic shock; F12.90 Cannabis use, unspecified, uncomplicated; Z86.73 Personal history of transient ischemic attack (TIA), and cerebral infarction without residual deficits; Z88.8 Allergy status to other drugs, medicaments and biological substances; Z91.040 Latex allergy status; Z79.891 Long term (current) use of opiate analgesic; Z79.82 Long term (current) use of aspirin; Z79.899 Other long term (current) drug therapy; Z11.52 Encounter for screening for COVID-19
CPT/HCPCS: 0241U; 36415; 74176; 80048; 80053; 80069; 81001; 82947; 83605; 83690; 83735; 85025; 87040; 87086; 87507; 94760; 96361; 96365; 96375; 99285-25; A9270; G0378; J0696; J1650; J2405; J3475; J3480; J7030; J7060; J7120

== ENCOUNTER 2025-01-18 06:56 | Inpatient (IN) | payer OTHER, MEDICARE ==
[~2025-01-18] VITALS: Ht 175.3 cm; Wt 78.4 kg
[~2025-01-18 06:56] MED LIST changes: +BIOTENE MOUTHWASH MT; +FAMO40 PO; +IPRAT-ALBUT 0.5-3 ML INH; +MAGNESIUM CHLORIDE PO; +NARCAN4 M1; +ONDA4ODT MM; +THERA-D2000 UNIT PO; +[UNRECOGNIZED DRUG - OTHER] MT
[2025-01-18] MEDS ORDERED: CefTRIAXone Sodium 2,000 MG in NS 100 ML IV ONE (07:40)
[2025-01-18 07:47] LABS: BASOPHILS ABSOLUTE AUTO 0.05 K/mm3 (0.00-0.23); BASOPHILS PERCENT AUTO 0 % (0-2); EOSINOPHILS ABSOLUTE AUTO 0.00 K/mm3 (0.00-0.68); EOSINOPHILS PERCENT AUTO 0 % (0-6); Hematocrit 36.5 % (37.0-53.0); Hemoglobin 12.6 g/dL (13.5-17.5); IMMATURE GRAN ABSOLUTE AUTO 0.26 K/mm3 (0.00-0.10); IMMATURE GRAN PERCENT AUTO 1 % (0-1); LYMPHOCYTES ABSOLUTE AUTO 1.44 K/mm3 (0.84-5.20); LYMPHOCYTES PERCENT AUTO 6 % (21-46); MONOCYTES ABSOLUTE AUTO 1.41 K/mm3 (0.16-1.47); MONOCYTES PERCENT AUTO 6 % (4-13); Mean Corpuscular HGB Conc 34.5 g/dL (31.5-36.5); Mean Corpuscular Volume 94 fL (80-100); NEUTROPHILS ABSOLUTE AUTO 21.45 K/mm3 (1.96-9.15); NEUTROPHILS PERCENT AUTO 87 % (41-73); NRBC ABSOLUTE 0.00 K/mm3 (0.00-0.02); NRBC Auto 0.0 /100 WBC (0.0-0.2); Platelet Count 497 K/mm3 (150-400); RDW Coefficient Variation 12.9 % (11.7-14.2); RDW Standard Deviation 44.5 fL (35.1-46.3)
[2025-01-18 08:07] LABS: Alanine Aminotransfer (ALT/SGP 65.0 U/L (12-78); Albumin, Blood 2.2 g/dL (3.4-5.0); Albumin/Globulin Ratio 0.4 (0.8-1.8); Anion Gap 16.0 mmol/L (3-11); Aspartate Aminotrans (AST/SGOT 65.0 U/L (12-37); Bilirubin, Total 0.9 mg/dL (0.1-1.0); Blood Urea Nitrogen 28.0 mg/dL (8-24); CO2, Blood 20.0 mmol/L (21-32); Calcium, Blood 9.0 mg/dL (8.5-10.1); Chloride, Blood 94.0 mmol/L (98-108); Creatinine, Blood 0.97 mg/dL (0.60-1.20); Globulin, Blood 5.2 g/dL (2.2-4.0); Glucose, Blood 117.0 mg/dL (70-99); Magnesium, Blood 1.8 mg/dL (1.6-2.4); Phosphorus, Blood 3.4 mg/dL (2.5-4.9); Potassium, Blood 3.2 mmol/L (3.5-5.5); Sodium, Blood 127.0 mmol/L (136-145); Total Protein, Blood 7.4 g/dL (6.4-8.2)
[2025-01-18] MEDS ORDERED: NS 1,000 ML IV SCH ×4 (08:15→10:00)
[2025-01-18] MEDS ORDERED: Ketorolac Tromethamine 15mg Vial IV ONE (08:45)
[2025-01-18] MEDS ORDERED: Potassium Chl 20MEQ/Water100ML 100 ML IV ONE ×3 (08:55→15:40)
[2025-01-18 09:02] LABS: Source, Urine Foley catheter
[2025-01-18 09:09] LABS: Color, Urine Amber (P-Yellow); Glucose Qualitative, Urine Neg (Neg); Ketones, Urine 3+ (Neg); Leukocyte Esterase, Urine Neg (Neg); Protein, Urine 2+ (Neg); Specific Gravity, Urine 1.020 (1.003-1.022); Urobilinogen, Urine 2+ (Normal)
[2025-01-18 09:38] LABS: Bilirubin, Urine 1+ (Neg)
[2025-01-18] MEDS ORDERED: NS 1,000 ML IV ONE (09:50)
[2025-01-18 10:01] LABS: White Blood Cells, Urine 0-2 /hpf (0-5)
[2025-01-18 13:06] VITALS: BP 140/77
[2025-01-18] MEDS ORDERED: MIRT15ST PO ×2 (13:56)
[2025-01-18] MEDS ORDERED: OMEP20ER PO (13:56)
[2025-01-18] MEDS ORDERED: STIOLTO RESPIMAT4 G1 INH (13:56)
[2025-01-18] MEDS ORDERED: DIVA500ER PO (13:58)
[2025-01-18 16:37] VITALS: BP 124/73
--- NOTE | 2025-01-18 17:45 | NUR ---
SHIFT SUMMARY PT A&OX2 CONFUSED AND IMPULSIVE, VSS, TOLERATING PO, VOIDING, AND DENIED PAIN. PT REMAINS ON RA AND DENIES SOB. K INFUSED PER ORDER AND NS CONT TO INFUSE. THIS RN SPOKE W/ PT'S X2 AND PROVIDED UPDATES. PER , [place] BIOPROCESS ENGINEER TO EVALUATE PT FOR HOSPICE. CALL LIGHT WITHIN REACH AND BED ALARM ON FOR SAFETY.
[2025-01-18] MEDS ORDERED: FLU VACC TS2025-26(6MOS UP)/PF 45 MCG/0.5 ML SYRINGE IM SCH (18:00)
[2025-01-18 20:01] VITALS: BP 125/99
[2025-01-18] MEDS ORDERED: Divalproex Sodium 500 MG TABCR PO SCH (21:00)
[2025-01-18] MEDS ORDERED: Diphenoxylat/Atrop 2.5 / 0.025MG 1 Tab PO ONE (22:00)
[2025-01-18] MEDS ORDERED: Diphenoxylat/Atrop 2.5 / 0.025MG 1 Tab PO PRN (22:00)
[2025-01-19] VITALS (7 sets, daily range): BP systolic 100–127; BP diastolic 64–75
[2025-01-19 00:02] LABS: C DIFFICILE DNA NEGATIVE (Negative)
--- NOTE | 2025-01-19 02:00 | NUR ---
MIRIAN INITIATED @6198 D/T PT EXITING BED UNSAFELY, DOES NOT CALL FOR ASSISTANCE. PT HAS AN UNSTEADY GAIT, A/OX0, UNABLE TO FOLLOW DIRECTION AND STAFF UNABLE TO REDIRECT. MIRIAN INITIATED BY MATTHEW BRIAN NURSE.
--- NOTE | 2025-01-19 03:02 | NUR ---
SHIFT SUMMARY @HS PT FREQUENTLY ATTEMPTING TO EXIT THE BED, PULLING OFF LINES AND CORDS. VERY UNSTEADY GAIT, 2-PERSON ASSIST TO THE BSC. A/O X0-1, UNABLE TO REDIRECT. BED ALARM FOR SAFETY. PT UNABLE TO FOLLOW DIRECTIONS. MIRIAN INITIATED @2350 BY RN BREAK NURSE BERNARDO. PT HAS MULTIPLE LIQUID LOOSE STOOLS, YELLOW BILE COLOR. C-DIFF LAB SENT AND RESULTS ARE NEGATIVE. @HS THIS WIND TECHNICIAN CONTACTED THE ON-CALL HOSPITALIST DR. DAVIS R/T PT'S UNSAFE BEHAVIOR AND CONFUSION. PRN 100MG SERAQUEL ADMINISTERED ORDERED. NEW ORDER FOR PRN MELATORNIN PO RECEIVED WITH ANTIDIARRHEA, ONE-TIME MED ORDER. PT'S SKIN AROUND ANUS AND BELOW TESTICLES IS REDDENED. AROUND ANUS, SKIN TEAR NOTED. PICTURES IN CHART. CREAM APPLIED. PT HAS A NON-PROTECTIVE COUGH, COUGHING FREQUENTLY. LUNG SOUNDS DIMINISHED T/O. NEW ORDER FOR GUAFENESIN PO RECEIVED FROM THE ON-CALL HOSPITALIST DR. DAVIS, AND ADMINISTERED AT HS. PT RESTING COMFORTABLY @0315, RR EVEN, UNLABORED. BED AT THE LOWEST POSITION, CALL LIGHT W/I REACH. PT IS ABLE TO MAKE HIS NEEDS KNOWN.
--- NOTE | 2025-01-19 04:35 | NUR ---
NEW T-ORDER FROM THE ON-CALL HOSPITALIST DR. MENDOZA: OLANZAPINE 5MG IM X1 NOW. ENTERED TO [facility], SEE EMAR.
[2025-01-19 06:22] LABS: Hematocrit 33.5 % (37.0-53.0); Hemoglobin 11.5 g/dL (13.5-17.5); Mean Corpuscular HGB Conc 34.3 g/dL (31.5-36.5); Mean Corpuscular Volume 94 fL (80-100); NRBC ABSOLUTE 0.00 K/mm3 (0.00-0.02); NRBC Auto 0.0 /100 WBC (0.0-0.2); Platelet Count 432 K/mm3 (150-400); RDW Coefficient Variation 13.2 % (11.7-14.2); RDW Standard Deviation 45.7 fL (35.1-46.3)
[2025-01-19 06:45] LABS: Anion Gap 10.0 mmol/L (3-11); Blood Urea Nitrogen 19.0 mg/dL (8-24); CO2, Blood 22.0 mmol/L (21-32); Calcium, Blood 8.8 mg/dL (8.5-10.1); Chloride, Blood 105.0 mmol/L (98-108); Creatinine, Blood 0.76 mg/dL (0.60-1.20); Glucose, Blood 134.0 mg/dL (70-99); Potassium, Blood 3.3 mmol/L (3.5-5.5); Sodium, Blood 134.0 mmol/L (136-145)
[2025-01-19] MEDS ORDERED: Potassium Chloride 10 Meq Tablet SA PO ONE (07:50)
[2025-01-19 08:52] LABS: Alanine Aminotransfer (ALT/SGP 49.0 U/L (12-78); Albumin, Blood 1.9 g/dL (3.4-5.0); Albumin/Globulin Ratio 0.4 (0.8-1.8); Aspartate Aminotrans (AST/SGOT 37.0 U/L (12-37); Bilirubin, Direct 0.4 mg/dL (0.0-0.3); Bilirubin, Indirect 0.3 mg/dL (0.1-0.7); Bilirubin, Total 0.7 mg/dL (0.1-1.0); Globulin, Blood 4.4 g/dL (2.2-4.0); Total Protein, Blood 6.3 g/dL (6.4-8.2)
[2025-01-19] MEDS ORDERED: CefTRIAXone Sodium 1,000 MG in NS 100 ML IV SCH (09:00)
[2025-01-19] MEDS ORDERED: Enoxaparin 40 MG/0.4 ML SYR SC SCH (09:00)
--- NOTE | 2025-01-19 17:30 | NUR ---
SUMMARY PATIENT STARTED SHIFT IN MIRIAN RESTRAINT. THIS WAS DC'D TODAY AT 1458. PATIENT ALSO STARTED SHIFT ON ROOM AIR, THIS EVENING HOWEVER PT WAS TACHYPNIC AND SATTING 88% ON ROOM AIR, AFTER REPOSITIONING PT UP IN BED, SITTING UP IN BED AND PLACING 2L NC SHE IS NOW SATTING 92-93%. FOR FALL PRECAUTIONS PT IS STILL ATTEMPTING OOB BUT IS STILL DROWSY FROM LAST NIGHTS PRN'S. PRN ZYPREXA PO WAS GIVEN THIS AM WELL PER DR. JONES. PT AROUSABLE TO VOICE. A/O TO SELF ONLY. PLEASANTLY CONFUSED. WAITING ON VIDEO MONITOR SO WE CAN PLACE ON PATIENT, NONE ON UNIT, CHARGE NOTIFIED. NONSKID SOCKS AND BED ALARM IN PLACE. 500 ML LR BOLUS X1. CONTINUOUS NS INFUSION @100 ML/HR. JOE UPDATED VIA PHONE TODAY SHE CAN NOT COME IN HERSELF, SHE IS NOT TOO MOBILE HERSELF. PER PATIENTS SHE IS NOT EQUIPPED OR HEALTHY ENOUGH TO CONTINUE TO CARE FOR HIM AT HOME. HAS [facility] ASS[facility] 2 DAYS A WEEK FOR A COUPLE HOURS A DAY. PALLIATIVE CARE CONSULTED FOR ADVANCED CARE PLANNING. PUREWICK IN PLACE DUE TO INCONTINENCE. PER PT HIS HOME INHALER CAN NOT BE BROUGHT IN BY HER. WILL NOTIFY PROVIDER.
[2025-01-19] MEDS ORDERED: Ipratropium/Albuterol SulF 2.5-0.5MG/3 ML Amp INH PRN (18:00)
--- NOTE | 2025-01-19 23:07 | NUR ---
@5817 FIRE CONTROL TECHNICIAN B REPORTED PT PULLED OUT IV FROM RAC. NEW IV INSERTED BY THIS TOPLINE BEADING MACHINE TENDER TO RIGHT HAND 22G. WELL TOLERATED W/O COMPLAINTS.
--- NOTE | 2025-01-20 03:38 | NUR ---
SHIFT SUMMARY PT IS ON 2L VIA NC, SATS MID 90'S ON PULSE OXIMETER. PT ABLE TO KEEP THE NC ON. PT TOOK HIS HS MEDICATIONS W/O ANY COMPLAINTS, ADMINISTERED WHOLE WITH H2O. LL'S WHEEZING T/O PER AUSCULTATION. PT RIPPED OUT IV ON RAC, NEW IV PLACED ON RIGHT HAND, SECURED WITH COBAN. NS INFUSING ORDERED. BED AT THE LOWEST POSITION, CALL LIGHT W/I REACH. BED ALARM FOR SAFETY. FREQUENT CHECKS BY THE BEDSIDE DUE TO PT IS A HIGH FALL RISK AND ATTEMPTS TO SIT ON THE SIDE OF THE BED, OR EXIT THE BED W/O ASSISTANCE. PT IS 2-PERSON ASSIST. QUICKLY STAFF RESPONDING TO BED ALARM OR PT'S MOVEMENTS IN BED. PT MORE PEACEFUL THIS NOC SHIFT THAN PREVIOUS NOC SHIFT.
[2025-01-20 04:03] VITALS: BP 135/73
[2025-01-20 07:17] VITALS: BP 135/77
[2025-01-20 10:07] LABS: BASOPHILS ABSOLUTE AUTO 0.09 K/mm3 (0.00-0.23); BASOPHILS PERCENT AUTO 1 % (0-2); EOSINOPHILS ABSOLUTE AUTO 0.10 K/mm3 (0.00-0.68); EOSINOPHILS PERCENT AUTO 1 % (0-6); Hematocrit 33.2 % (37.0-53.0); Hemoglobin 11.6 g/dL (13.5-17.5); IMMATURE GRAN ABSOLUTE AUTO 0.17 K/mm3 (0.00-0.10); IMMATURE GRAN PERCENT AUTO 1 % (0-1); LYMPHOCYTES ABSOLUTE AUTO 1.79 K/mm3 (0.84-5.20); LYMPHOCYTES PERCENT AUTO 9 % (21-46); MONOCYTES ABSOLUTE AUTO 1.27 K/mm3 (0.16-1.47); MONOCYTES PERCENT AUTO 6 % (4-13); Mean Corpuscular HGB Conc 34.9 g/dL (31.5-36.5); Mean Corpuscular Volume 94 fL (80-100); NEUTROPHILS ABSOLUTE AUTO 16.53 K/mm3 (1.96-9.15); NEUTROPHILS PERCENT AUTO 83 % (41-73); NRBC ABSOLUTE 0.00 K/mm3 (0.00-0.02); NRBC Auto 0.0 /100 WBC (0.0-0.2); Platelet Count 399 K/mm3 (150-400); RDW Coefficient Variation 13.6 % (11.7-14.2); RDW Standard Deviation 46.6 fL (35.1-46.3)
[2025-01-20 10:27] LABS: Anion Gap 8.0 mmol/L (3-11); Blood Urea Nitrogen 10.0 mg/dL (8-24); CO2, Blood 25.0 mmol/L (21-32); Calcium, Blood 8.5 mg/dL (8.5-10.1); Chloride, Blood 106.0 mmol/L (98-108); Creatinine, Blood 0.62 mg/dL (0.60-1.20); Glucose, Blood 187.0 mg/dL (70-99); Potassium, Blood 3.2 mmol/L (3.5-5.5); Sodium, Blood 136.0 mmol/L (136-145)
[2025-01-20] MEDS ORDERED: Potassium Chloride 10 Meq Tablet SA PO ONE (11:10)
[2025-01-20 12:51] VITALS: BP 104/68
[2025-01-20 16:39] VITALS: BP 119/80
--- NOTE | 2025-01-20 18:30 | NUR ---
PT A/O TO SELF. PT ATTEMPTS TO GET OUT OF BED FREQUENTLY, BED ALARM ARMED, BED IS IN LOWEST POSITION. PT OFTEN RIPS AT TELE AND IV TUBING AND HAS TO BE REDIRECTED. HE IS A 1PA TO THE BEDSIDE COMMODE. NO ACUTE NEEDS AT THIS TIME.
[2025-01-20 20:03] VITALS: BP 121/80
--- NOTE | 2025-01-20 21:57 | NUR ---
PATIENT AGITATED TRYING TO GET OUT OF BED AND TRYING TO TURN OFF BED ALARM. YELLING AT STAFF AND TRYING TO PUNCH. PATIENT CALMED DOWN AFTER AWHILE AND NEXT ASSIST TO BR. SCHEDULE SEROQUEL 400 MG AND SCHEDULE MELATONIN 6 MG GIVEN. PATIENT SLEEPING AT THIS TIME. BED ALARM ON. WCTM.
[2025-01-20 23:35] VITALS: BP 121/71
--- NOTE | 2025-01-21 04:09 | NUR ---
SHIFT SUMMARY PATIENT AGITATION DECREASING FROM START OF SHIFT. PRN SEROQUEL 100 MG GIVEN AND ZYPREXA 5 MG. ALERT TO SELF AND ONE ASSIST TO BR. PIV INTACT. NS INFUSING @ 100 mL/HR. TELE MONITOR NSR 86. ON 3L O2 NC AND PULLS OFF AT TIMES. IMPULSIVE WITH MULTIPLE OUT OF BED ATTEMPTS WANTING TO USE BR BUT NOT USING THE CALL LIGHT. SLEPT ON/OFF. CALL LIGHT IN REACH. BED IN LOWEST POSITION AND ALARM ON. WILL CONTINUE TO MONITOR UNTIL DAY SHIFT NURSE ASSUMES CARE.
[2025-01-21 05:37] VITALS: BP 132/76
[2025-01-21 05:49] LABS: Anion Gap 9.0 mmol/L (3-11); Blood Urea Nitrogen 10.0 mg/dL (8-24); CO2, Blood 23.0 mmol/L (21-32); Calcium, Blood 8.4 mg/dL (8.5-10.1); Chloride, Blood 106.0 mmol/L (98-108); Creatinine, Blood 0.61 mg/dL (0.60-1.20); Glucose, Blood 127.0 mg/dL (70-99); Potassium, Blood 3.4 mmol/L (3.5-5.5); Sodium, Blood 135.0 mmol/L (136-145)
[2025-01-21 05:59] LABS: BASOPHILS ABSOLUTE AUTO 0.07 K/mm3 (0.00-0.23); BASOPHILS PERCENT AUTO 0 % (0-2); EOSINOPHILS ABSOLUTE AUTO 0.07 K/mm3 (0.00-0.68); EOSINOPHILS PERCENT AUTO 0 % (0-6); Hematocrit 33.3 % (37.0-53.0); Hemoglobin 11.2 g/dL (13.5-17.5); IMMATURE GRAN ABSOLUTE AUTO 0.16 K/mm3 (0.00-0.10); IMMATURE GRAN PERCENT AUTO 1 % (0-1); LYMPHOCYTES ABSOLUTE AUTO 2.05 K/mm3 (0.84-5.20); LYMPHOCYTES PERCENT AUTO 13 % (21-46); MONOCYTES ABSOLUTE AUTO 1.22 K/mm3 (0.16-1.47); MONOCYTES PERCENT AUTO 8 % (4-13); Mean Corpuscular HGB Conc 33.6 g/dL (31.5-36.5); Mean Corpuscular Volume 97 fL (80-100); NEUTROPHILS ABSOLUTE AUTO 12.12 K/mm3 (1.96-9.15); NEUTROPHILS PERCENT AUTO 77 % (41-73); NRBC ABSOLUTE 0.00 K/mm3 (0.00-0.02); NRBC Auto 0.0 /100 WBC (0.0-0.2); Platelet Count 352 K/mm3 (150-400); RDW Coefficient Variation 14.0 % (11.7-14.2); RDW Standard Deviation 49.7 fL (35.1-46.3)
[2025-01-21 08:48] VITALS: BP 125/71
--- NOTE | 2025-01-21 09:32 | NUR ---
PT HR SUSTAINING >120. PT RECIEVED 75 MG LOPPRESSOR @ 0845. NOTIFIED. PER , ORDER ADDITIONAL 25 MG LOPRESSOR PO X1 NOW.
[2025-01-21 11:18] VITALS: BP 137/85
--- NOTE | 2025-01-21 14:45 | NUR ---
ROUNDED ON PATIENT. PATIENTS FRIEND NATANAEL WAS AT BEDSIDE, HE EXPRESSED CONCERN ABOUT THE DIRECTION OF CARE. PATIENT IS HARD OF HEARING AND HAS NOT BEEN ABLE TO PARTICIPATE IN CONVERSATION CONCERNING HIS CARE MOVING FORWARD. NATANAEL REPORTS THAT GLORY HAD BEEN WALKING AT [place] WITH HIM A WEEK PRIOR TO BEING ADMITED. GLORY NOW HAS A HEARING DEVICE. UPDATED DR. JONES AND WE ROUNDED TOGETHER ON THE PATIENT. GLORY KNEW HE WAS AT THE HOSPITAL IN [place], HE WAS UNCLEAR OF THE YEAR, KNEW THE PRESIDENT. HE REPORTED THAT HE DOES HAVE SOME DEMENTIA AND MEMORY LOSS BUT REPORTS THAT HE HAS BEEN DOING PRETTY WELL PRIOR TO THIS HOSPITILIZATION. PROVIDER RECOMENDS PT AND OT TO ESTABLISH HIS CURRENT LEVEL OF STRENGTH.
[2025-01-21 15:23] VITALS: BP 112/72
--- NOTE | 2025-01-21 16:31 | NUR ---
PT CONFUSED AND DIFFICULT TO REDIRECT. ATTEMPTING TO GET OUT OF BED UNSAFELY,. PT IS CONT OF URINE AND BOWEL. ONE LARGE LOOSE BM TODAY. ORIENTED TO SELF ONLY VERY [place]. PT PULLED OUT IV AND REMOVED TELE MONITOR MULTIPLE TIMES THIS SHIFT. PALLIATIVE CARE INVOLVED. D/C PLANNING AT THIS TIME. 1 ASSIST TO BSC
[2025-01-21] MEDS ORDERED: Haloperidol Lactate Inj. 5 MG/ML Injection IM PRN (17:10)
[2025-01-21 20:03] VITALS: BP 120/62
--- NOTE | 2025-01-22 04:05 | NUR ---
SHIFT SUMMARY PATIENT REMAINS IMPULSIVE AND NOT FOLLOWING DIRECTIONS. UP T/O SHIFT TO USE BR WITHOUT CALLING. ALERT TO SELF AND ONE ASSIST. TELE MONITOR SR 87. DENIES CHEST PAIN AND N/V. VSS/AFEBRILE. SOB W/EXERTION. ON 2L O2 NC. CALL LIGHT IN REACH. BED IN LOWEST POSITION AND ALARM ON. WILL CONTINUE TO MONITOR UNTIL DAY SHIFT NURSE ASSUMES CARE.
[2025-01-22 04:33] VITALS: BP 144/85
[2025-01-22 05:07] LABS: BASOPHILS ABSOLUTE AUTO 0.07 K/mm3 (0.00-0.23); BASOPHILS PERCENT AUTO 1 % (0-2); EOSINOPHILS ABSOLUTE AUTO 0.10 K/mm3 (0.00-0.68); EOSINOPHILS PERCENT AUTO 1 % (0-6); Hematocrit 33.8 % (37.0-53.0); Hemoglobin 11.1 g/dL (13.5-17.5); IMMATURE GRAN ABSOLUTE AUTO 0.13 K/mm3 (0.00-0.10); IMMATURE GRAN PERCENT AUTO 1 % (0-1); LYMPHOCYTES ABSOLUTE AUTO 1.74 K/mm3 (0.84-5.20); LYMPHOCYTES PERCENT AUTO 13 % (21-46); MONOCYTES ABSOLUTE AUTO 1.27 K/mm3 (0.16-1.47); MONOCYTES PERCENT AUTO 9 % (4-13); Mean Corpuscular HGB Conc 32.8 g/dL (31.5-36.5); Mean Corpuscular Volume 97 fL (80-100); NEUTROPHILS ABSOLUTE AUTO 10.66 K/mm3 (1.96-9.15); NEUTROPHILS PERCENT AUTO 76 % (41-73); NRBC ABSOLUTE 0.00 K/mm3 (0.00-0.02); NRBC Auto 0.0 /100 WBC (0.0-0.2); Platelet Count 379 K/mm3 (150-400); RDW Coefficient Variation 14.3 % (11.7-14.2); RDW Standard Deviation 50.4 fL (35.1-46.3)
[2025-01-22 05:29] LABS: Anion Gap 7.0 mmol/L (3-11); Blood Urea Nitrogen 10.0 mg/dL (8-24); CO2, Blood 27.0 mmol/L (21-32); Calcium, Blood 8.6 mg/dL (8.5-10.1); Chloride, Blood 106.0 mmol/L (98-108); Creatinine, Blood 0.65 mg/dL (0.60-1.20); Glucose, Blood 114.0 mg/dL (70-99); Potassium, Blood 3.1 mmol/L (3.5-5.5); Sodium, Blood 137.0 mmol/L (136-145)
[2025-01-22 07:31] VITALS: BP 176/95
--- NOTE | 2025-01-22 16:01 | NUR ---
CALLED PATIENTS TO DISCUSS ANDERS SPOUSE JOE. REVIEWED YESTERDAYS CONVERSATION WITH PATIENT PROVIDER AND PATIENTS FRIEND NATANAEL. JOE REPORTED THAT GLORY HAS BEEN INCREASINGLY CONFUSED, SHE IS CONCERNED ABOUT HIS SAFTY AT HOME AND IS WORRIED THAT HE WILL WONDER AWAY. SHE IS CURRENTLY WC BOUND AND IS STRUGGLING TO TAKE CARE OF HIM. SHE REPORTED THAT HE STRUGGLES TO FOLLOW SIMPLE INSTRUCTIONS. WE DISCUSSED LTC. SHE STARTED THE [employer] PROCESS AND WOULD LIKE TO PERSUE PLACMENT FOR ANDERS POST. DISCUSSED THIS WITH CARE COORDINATION AND PROVIDER. BSRN REPORTED THAT GLORY HAS BEEN IMPULSIVE AND WANDERING TODAY. SHE REPORTED THAT HE HAS BEEN DIFFICULT TO REDIRECT.
--- NOTE | 2025-01-22 16:58 | NUR ---
END OF SHIFT NOTE: PT STARTED OFF BEING COOPERATIVE AND EASILY REDIRECTABLE UNTIL ABOUT 1000. AT ONE POINT PT WAS HARD TO REDIRECT BACK INTO HIS ROOM, HE WAS GOING TO THE [facility] ROOM TRYING TO GET IN THERE BECAUSE HE THOUGHT HIS WAS IN THERE SLEEPING. PT GIVEN PRNS. PT DOES CONTINUE TO GET OUT OF BED FREQUENTLY, STAFF SPENDING MOST OF THE TIME IN HIS ROOM, SITTING WITH HIM, TALKING WITH HIM, AND LETTING HIM WALK AROUND IN HIS ROOM. HE IS UNSTEADY ON HIS FEET, AND ALMOST FELL ON THE FLOOR TWICE DUE TO SITTING HIMSELF DOWN ON THE DAY BED AND NOT FULLY SITTING HIS BUTT ON THE BED. HE HAS GOOD PO INTAKE, IS INCONT AND CONT OF URINE, WEARING PULL UP. COOPERATIVE WITH HYGIENE CARE. PT NOT AGGRESSIVE WITH STAFF TODAY. VERBAL ORDER TO REMOVE TELE AROUND 1250, THE PT WAS ACTING LIKE HE WAS SMOKING AND BLOWING ON THE WIRES, THEN UPSET THAT HE HAD THINGS ATTACHED TO HIM, THIS WAS INCREASING HIS AGGITATION. PT DOES TAKE MEDICATIONS WITHOUT DIFFICULTY AND WHEN ASKED.
[2025-01-22] MEDS ORDERED: Potassium Chloride 10 Meq Tablet SA PO ONE (18:50)
--- NOTE | 2025-01-22 18:50 | NUR ---
LAB RESULTS LAB CALLED WITH POSITIVE BLOOD CULTURES. NOTIFIED. ALSO NOTIFED OF POTASSIUM FROM THIS AM. STATED NEW ORDERS WILL BE PLACE.
[2025-01-22] MEDS ORDERED: CefTRIAXone Sodium 2,000 MG in NS 100 ML IV SCH (19:01)
--- NOTE | 2025-01-22 19:05 | NUR ---
Assumed Care/Agitation at start of shift Bedside shift report completed. Patient sitting in bed with friend at bedside. AO to self only, restless and agitated. Already climbing out of bed by self and setting the bed alarm off as johnny Melvin RN and myself walked out to another patient's room. Can hear patient saying "And here they come." Difficulty redirecting, denied potty/pain/possessions. Adamant about finding his bedroom with his big bed (this one is too small). Wanted to look in every room despite telling him that patients are sleeping. Door closed with patient, friend, and myself. Was very difficult to redirect, patient pushed this RN a few times to try and open the door, but after some empty verbal threats, patient turned back and sat in bed very disgruntled. It appers patient had recently received 1mg IM haldol, this was clearly ineffective as evidence by impulsivity, agitation, restlessness. Bed alarm turned back on and call light in reach. MATTHEW Evans at bedside w/ attempts to calm patient while this RN calls the vehicle service agent for orders.
[2025-01-22 19:22] VITALS: BP 146/82
--- NOTE | 2025-01-22 20:00 | NUR ---
Physician Contacted for vest restraint Attempts to calm patient ineffective. Patient is confused and having sundowner's w/ behavioral issues and agitation. Patient is getting OOB unsafely by self. It is nearly impossible to redirect at this point. Patient is yelling at staff w/ foul language and name calling. Call made out to SABAS Holcomb and received T.O. to place flaco vest restraint on patient. Flaco attempted, difficulty putting on restraint due to patient resistance. Took 3 staff members to put the vest restraint on and zipped. Administering night meds was difficult as patient refused to take any. Discussed with patient potential of "cutting off" restraint if pateint is calm and takes his meds. Patient was hesitant but eventually agreed to take some meds while refusing the rest. Willing to take meds from MATTHEW Evans only. Discussed behavior needed in order to remove restraints as the followed: Fall risk reduced, maintain safety in bed, pt responding to redirection, and/or ability to manage patient safely with bed alarm. TANVI.
--- NOTE | 2025-01-22 21:15 | NUR ---
Physician contacted d/t combative and increased agitation Patient's agitation seems increased with flaco on. Despite night seroquel and zyprexa given, patient is still agitated and thrashing in bed. He is finding ways to untie flaco and has been quite successful at it. Tried wrist restraints instead but patient was able get out of those as well so they were not utilized. Called SABAS Holcomb and got a T.O to give 5mg IV haldol now and then 1mg IV ativan q4h prn for agitation. Pharmacist Nargis Harris is concerned about patient not being on telemetry and Haldol + Seroquel causing increased risk of QT prolongation. Called Zhang back and obtained an order to give 2mg IV ativan now as a replacement for the 5mg IV haldol. Order entered.
[2025-01-22] MEDS ORDERED: LORazepam 2 MG/ML 1ML Injection IV PRN (21:20)
[2025-01-22] MEDS ORDERED: Haloperidol Lactate Inj. 5 MG/ML Injection IV ONE (21:20)
[2025-01-22] MEDS ORDERED: LORazepam 2 MG/ML 1ML Injection IV ONE (21:30)
--- NOTE | 2025-01-22 22:30 | NUR ---
Update: Ativan given. Gennaro Evans, RN sat with patient as patient responding to her presence better. Patient still confused and agitated, still wanting staff to cut the flaco off. Pulled off coban that was concealing PIV line. Also frequently pulling off nasal cannula. Patient is working self up. Remains restless. Appears to have periods of apnea, concerning for sleep apnea. HOB maintained between 30 -90 degrees and turned to sides while drowsy. Audible wheezes and some gurgling noted, called RT for neb treatment. Pulled patient up in bed. Suction set up and utilized at the bedside. Oral care given.
[2025-01-23] VITALS (7 sets, daily range): BP systolic 118–147; BP diastolic 70–87
[2025-01-23 05:15] LABS: BASOPHILS ABSOLUTE AUTO 0.07 K/mm3 (0.00-0.23); BASOPHILS PERCENT AUTO 1 % (0-2); EOSINOPHILS ABSOLUTE AUTO 0.07 K/mm3 (0.00-0.68); EOSINOPHILS PERCENT AUTO 1 % (0-6); Hematocrit 32.5 % (37.0-53.0); Hemoglobin 11.0 g/dL (13.5-17.5); IMMATURE GRAN ABSOLUTE AUTO 0.18 K/mm3 (0.00-0.10); IMMATURE GRAN PERCENT AUTO 2 % (0-1); LYMPHOCYTES ABSOLUTE AUTO 2.09 K/mm3 (0.84-5.20); LYMPHOCYTES PERCENT AUTO 18 % (21-46); MONOCYTES ABSOLUTE AUTO 1.31 K/mm3 (0.16-1.47); MONOCYTES PERCENT AUTO 11 % (4-13); Mean Corpuscular HGB Conc 33.8 g/dL (31.5-36.5); Mean Corpuscular Volume 95 fL (80-100); NEUTROPHILS ABSOLUTE AUTO 8.04 K/mm3 (1.96-9.15); NEUTROPHILS PERCENT AUTO 68 % (41-73); NRBC ABSOLUTE 0.00 K/mm3 (0.00-0.02); NRBC Auto 0.0 /100 WBC (0.0-0.2); Platelet Count 334 K/mm3 (150-400); RDW Coefficient Variation 14.2 % (11.7-14.2); RDW Standard Deviation 49.4 fL (35.1-46.3)
[2025-01-23 06:11] LABS: Anion Gap 8.0 mmol/L (3-11); Blood Urea Nitrogen 10.0 mg/dL (8-24); CO2, Blood 28.0 mmol/L (21-32); Calcium, Blood 8.8 mg/dL (8.5-10.1); Chloride, Blood 105.0 mmol/L (98-108); Creatinine, Blood 0.65 mg/dL (0.60-1.20); Glucose, Blood 104.0 mg/dL (70-99); Potassium, Blood 2.9 mmol/L (3.5-5.5); Sodium, Blood 138.0 mmol/L (136-145)
[2025-01-23 07:31] LABS: pH Blood Venous 7.48 (7.34-7.37)
--- NOTE | 2025-01-23 07:54 | NUR ---
Shift Summary AO to self. Agitated and combative this shift. Tried to bite, dig nails into arms, and even held a fist trying to swing at staff when we tried to apply vest restraint. Positive for auditory and visual hallucinations. Pt heard police officers were called and arriving soon so he needed to get ready. Patient was not redirectable, worsened with patient being DOUGLAS. Neli d/c'd as patient is restless but no longer impulsive. Medicated w/ ativan x 2 this shift, it was somewhat effective at reducing anxiety. Incontinent. Repositioned, however, patient always ends up on his back. HOB kept mostly above 30 degrees d/t suspected sleep apnea and at high risk of aspiration. PIV to RAC, patent and saline locked. Patient did not take his oral potassium d/t refusal. Has been tachycardia and tachypneic. Moist cough already present at shift start. Concerned for aspiration, Dr. Stevie Stewart was called and stat VBG as well as stat chest x-ray 1v were ordered. Care relinquished, care handed off to Migdalia Brown RN.
--- NOTE | 2025-01-23 08:42 | NUR ---
MD NOTIFIED PATIENT DIFFICULT TO AROUSE PATIENT LETHARGIC, DIAPHORETIC, RR IN 30s, NEEDING INCREASED OXYGEN DEMANDS AT 4 LPM VIA NASAL CANNULA. PATIENT HEART RATE IN 120s. UNABLE TO ADMINISTER MORNING MEDICATIONS DUE TO LETHARGY. MD STATES WILL COME TO BEDSIDE TO ASSESS, 1:1 SITTER AT BEDSIDE, STAT CHEST X RAY COMPLETED THIS AM D/T POSSIBILITY OF ASPIRATION. RESPIRATORY THERAPY ASSESSED THIS AM AND PROVIDED NASOPHARYNGEAL SUCTION, PATIENT UNABLE TO CLEAR HIS SECRETIONS. WILL CONTINUE TO MONITOR.
[2025-01-23] MEDS ORDERED: Vancomycin (Pharmacy Consult) IV SCH (08:50)
[2025-01-23] MEDS ORDERED: Potassium Chl 20MEQ/Water100ML 100 ML IV SCH (09:05)
[2025-01-23] MEDS ORDERED: Doxycycline Hyclate 100 MG in Dextrose 5% 250 ML IV SCH (09:30)
[2025-01-23 09:58] LABS: Magnesium, Blood 1.2 mg/dL (1.6-2.4); Thyroid Stimulating Hormone 1.84 uIU/mL (0.360-4.800)
[2025-01-23] MEDS ORDERED: Piperacillin/Tazobactam Sod 4.5 GM in NS 100 ML IV SCH (11:00)
--- NOTE | 2025-01-23 11:00 | NUR ---
DIFFICULTY OBTAINING IV ACCESS PATIENT NPO DUE TO MENTATION AND LETHARGY, POSSIBLE ASPIRATION EVENT LAST NIGHT. MULTIPLE IV MEDICATIONS ORDERED INCLUDING, POTASSIUM, MAGNESIUM, ZOSYN, VANCO, AND DOXYCYCLINE. IV TO R AC INFILTRATED AND PATIENT LEFT WITHOUT IV ACCESS. MEDICATIONS ADMINISTERD LATE, SEE MAR, DUE TO DIFFICULTY OBTAINING IV ACCESS WITH PATIENT'S CONFUSION. PATIENT NOW WITH 3 PERIPHERAL IVs.
[2025-01-23 11:13] LABS: Influenza A/2009-H1 Not Detected (NOT DETECT); SARS-Cov-2 (COVID-19), BioFire Not Detected (NOT DETECT)
[2025-01-23] MEDS ORDERED: Mag Sulfate 1 GM/D5% 100ML 100 ML IV STA (11:30)
[2025-01-23] MEDS ORDERED: NS 250 ML IV PRN (12:20)
--- NOTE | 2025-01-23 13:16 | NUR ---
PT IS VERY CONFUSED TODAY, HAS SUCCESSFULLY PULLED OUT IV'S TODAY. HE IS NOT FOLLOWING COMMANDS. A VISITOR WHO IDENTIFIED HERSELF A FAMILY FRIEND BEGAN CRYING IN THE HALLWAY. SHE STATED, "THIS IS NOT WHO HE IS. HE SEEMS LIKE HE'S GIVEN UP AND HIS CONTINUES REFUSING TO SEE HIM." THE FRIEND REPORTS THE PATIENT'S HAS BEEN REPORTING BEING UNDER A TREMENDOUS AMOUNT OF STRESS TRYING TO CARE FOR THE PATIENT OVER THE PAST 2 YEARS, AND REPORTS THE PT'S STATED, "I'M DONE. I DON'T CARE IF I EVER SEE HIM AGAIN." PHYSICIAN IS AWARE, PLAN TO RE-EVALUATE PT AGAIN TOMORROW AND ON SATURDAY. IF NO MARKED IMPROVEMENT, PC AND PHYSICIAN WILL RE-EVALUATE.
[2025-01-23 14:08] LABS: Acinetobacter baumannii DNA Not Detected copy/mL (NOT DETECT); Chlamydia pneumonia Not Detected (NOT DETECT); Enterobacter cloacae DNA Not Detected copy/mL (NOT DETECT); Escherichia coli DNA Not Detected copy/mL (NOT DETECT); Haemophilus influenzae DNA Not Detected copy/mL (NOT DETECT); Human Coronavirus RNA Not Detected (NOT DETECT); Human Metapneumovirus RNA Not Detected (NOT DETECT); Influenza virus A RNA Not Detected (NOT DETECT); Influenza virus B RNA Not Detected (NOT DETECT); Klebsiella aerogenes DNA Not Detected copy/mL (NOT DETECT); Klebsiella oxytoca DNA Not Detected copy/mL (NOT DETECT); Klebsiella pneumoniae DNA Not Detected copy/mL (NOT DETECT); Moraxella catarrhalis DNA Not Detected copy/mL (NOT DETECT); Proteus sp DNA Not Detected copy/mL (NOT DETECT); Pseudomonas aeruginosa DNA Not Detected copy/mL (NOT DETECT); Respiratory syncytial Vir RNA Not Detected (NOT DETECT); Rhinovirus+Enterovirus RNA Not Detected (NOT DETECT); Serratia marcescens DNA Not Detected copy/mL (NOT DETECT); Staphylococcus aureus DNA Not Detected copy/mL (NOT DETECT); Streptococcus agalactiae DNA Not Detected copy/mL (NOT DETECT); Streptococcus pneumoniae DNA Not Detected copy/mL (NOT DETECT); Streptococcus pyogenes DNA Not Detected copy/mL (NOT DETECT)
[2025-01-23] MEDS ORDERED: Metoprolol Tartrate 1 MG/ML 5 ML VIAL IV ONE (17:10)
--- NOTE | 2025-01-23 18:42 | NUR ---
SHIFT SUMMARY PATIENT LETHARGIC THIS AM, BUT SLOWLY BEOCMING MORE RESTLESS AND AGITATED. PATIENT CONFUSED, DISORIENTED, HAS DIFFICULTY ANSWERING QUESTIONS. PATIENT WITH INTERMITTENT EPISODES OF AGITATION AND IMPULSIVITY, DIFFICULT TO REDIRECT. CONTINUES WITH 1:1 SITTER. ZYPREXA ADMINISTERED X2 FOR RESTLESSNESS AND AGITATION. HEART RATE IN 110-120s THIS AM, RE-ORDERED TELEMETRY. TELE CALLED THIS EVENING D/T HEART RATE IN 130s. PO MEDICATIONS NOT ADMINISTERED DUE TO ASPIRATION RISK AND FOR SAFETY, IV METOPROLOL ORDERED. HEART RATE IN 90s CURRENTLY. IV FLUIDS RUNNING PER JUN AND IV POTASSIUM, MAGNESIUM, MULTIPLE IV ABXs. PATIENT'S , JOE, CALLED THIS EVENING FOR AN UPDATE AND NOTIFIED OF HIS DECLINE OVERNIGHT. PATIENT'S STATES CONCERNS WITH DISCHARGE AND HER INABILITY TO SAFELY CARE FOR HER ANY LONGER. JOE STATED FOR THE LAST 5 YEARS PATIENT HAS STEADILY DECLINED AND "WANDERS OUTSIDE, WANDERS IN THE HOUSE" HE CONTINUES TO SMOKE DESPITE DIFFICULTIES WITH HIS COPD AND SHE STATES THEY SLEEP IN SEPERATE BEDROOMS AND "IT SOUNDS LIKE HE'S DROWNING IN HIS SLEEP." JOE STATED THIS HAS BEEN HAPPENING FOR APPROX 3 MONTHS. PATIENT'S DISPLAYING SEVERE CAREGIVEER FATIGUE AND VOICING CONCERNS OF PLACEMENT FOR PATIENT AND INABILITY TO PAY FOR ASSISTANCE SHE HAS MINIMAL FAMILY AND FRIEND SUPPORT. JOE STATES THAT SHE USES REPSITE SERVICES AT BY YOUR SIDE TUESDAYS AND THURSDAYS FOR UP TO 4 HOURS IN ORDER TO GET GROCERIES AND HAVE "LUNCH DATES WITH FRIENDS" PATIENT UNSAFE ALONE AT HOME. SPOKE WITH PALLIATIVE CARE WITH CONCERNS. NO OTHER CONCERNS AT THIS TIME, BEDSIDE SHIFT REPORT COMPLETED WITH MANAGER PACU RN.
--- NOTE | 2025-01-23 21:10 | NUR ---
Physician Contacted Concern for aspiration d/t decreased mentation, worsening pneumonia, and pocketing food during meals on day shift (the latter is per report received from Migdalia Rodriguez RN). [place] thick liquid and pudding given without any signs of aspiration so meds were given crushed w/ pudding. Called Zhang Archer NP to change Depakote ER and Guaifenesin ER to Depakote Sprinkles and either a liquid or crushable form of guaifenesin. Received T.O. to change ER depakote to the sprinkles and was asked to consult pharmacy for dosage equivalency. Nargis Harris, our Pharmacist, recommended to order 500mg PO at bedtime and 325mg PO of Depakote Sprinkles. Order entered per recommendation. Awaiting med from pharmacy.
[2025-01-23] MEDS ORDERED: Metoprolol Tartrate 1 MG/ML 5 ML VIAL IV PRN (23:15)
--- NOTE | 2025-01-23 23:40 | NUR ---
Physician Contacted: Restraints, SVT + Tachycardia SVT + Tachycardia Notified by cable television line technician Mary Grace Quiles RE 14 beat run of SVT in the 160s around 2200. Patient having persistent tachycardia w/ HR 125-130s as well. Called (Ephraim) SABAS Holcomb requesting med to treat sustained tachycardia. SABAS Ye will review patient chart and order meds accordingly. Soon after, prn lopressor was ordered, it was given given. Upon recheck, tele r/r per Mary Grace was ST 121. New prn lopressor ordered to give if HR > 125. Restraint: Patient already has a sitter; however, sitter is unable to keep patient from pulling out IV's d/t being combative and confused. Patient remained confused since start of shift but was redirectable until he started pulling on lines and sitter tried to prevent lines from being pulled. This was when pt started yelling and getting agitated. Entered room to find patient trying to slap sitter's arm so can stop trying to remove lines from patients closed hand. Attempts made to de-escalate and even had Miguel Ángel Camacho RN come and assist. David response unchanged. Remained combative toward staff almost hurting this RN's thumb as he grabbed hold of it. Had Tj Rodriges apply locked restraints at this point. Obtained T.O. from Zhang Archer NP to initiate bilateral locked wrist restraints (see yesterday's note on why decision made to bypass other restraints). Sitter Order discontinued soon after Restraint Order became active per hospital policy. -to note- Original restraint order placed 01/23/2025 @ 2306. Unsure how the status of this order changed to "Complete" as it was never acknowledged by this RN as completed. The furtherest back allowed to back chart was 01/24/2025 @ 0000 (midnight). Instructed by air launch weapons technician, Kb Pearce, to re-enter a new order reflecting the latter date/time allowed by [employer] and resume charting as indicated. Restraint documenation intervention with the initial ordered date/time has been completed by myself in order to add new intervention reflecting latter order date/time.
[2025-01-24 03:33] VITALS: BP 110/62
--- NOTE | 2025-01-24 03:50 | NUR ---
Physician Contacted: IV protonix Discussed with and received T.O. to change current PO protonix to IV route from Dr. Stevie Stewart d/t aspiration risk. EMAR updated.
[2025-01-24 05:50] LABS: BASOPHILS ABSOLUTE AUTO 0.09 K/mm3 (0.00-0.23); BASOPHILS PERCENT AUTO 1 % (0-2); EOSINOPHILS ABSOLUTE AUTO 0.14 K/mm3 (0.00-0.68); EOSINOPHILS PERCENT AUTO 2 % (0-6); Hematocrit 32.3 % (37.0-53.0); Hemoglobin 10.7 g/dL (13.5-17.5); IMMATURE GRAN ABSOLUTE AUTO 0.16 K/mm3 (0.00-0.10); IMMATURE GRAN PERCENT AUTO 2 % (0-1); LYMPHOCYTES ABSOLUTE AUTO 1.78 K/mm3 (0.84-5.20); LYMPHOCYTES PERCENT AUTO 19 % (21-46); MONOCYTES ABSOLUTE AUTO 1.01 K/mm3 (0.16-1.47); MONOCYTES PERCENT AUTO 11 % (4-13); Mean Corpuscular HGB Conc 33.1 g/dL (31.5-36.5); Mean Corpuscular Volume 98 fL (80-100); NEUTROPHILS ABSOLUTE AUTO 5.99 K/mm3 (1.96-9.15); NEUTROPHILS PERCENT AUTO 65 % (41-73); NRBC ABSOLUTE 0.00 K/mm3 (0.00-0.02); NRBC Auto 0.0 /100 WBC (0.0-0.2); Platelet Count 317 K/mm3 (150-400); RDW Coefficient Variation 14.6 % (11.7-14.2); RDW Standard Deviation 52.9 fL (35.1-46.3)
[2025-01-24] MEDS ORDERED: Pantoprazole Sodium 40 MG Injection IV SCH (06:00)
[2025-01-24 06:23] LABS: Alanine Aminotransfer (ALT/SGP 20.0 U/L (12-78); Albumin, Blood 1.6 g/dL (3.4-5.0); Albumin/Globulin Ratio 0.4 (0.8-1.8); Anion Gap 8.0 mmol/L (3-11); Aspartate Aminotrans (AST/SGOT 27.0 U/L (12-37); Bilirubin, Total 0.5 mg/dL (0.1-1.0); Blood Urea Nitrogen 8.0 mg/dL (8-24); CO2, Blood 27.0 mmol/L (21-32); Calcium, Blood 8.3 mg/dL (8.5-10.1); Chloride, Blood 109.0 mmol/L (98-108); Creatinine, Blood 0.62 mg/dL (0.60-1.20); Globulin, Blood 4.2 g/dL (2.2-4.0); Glucose, Blood 101.0 mg/dL (70-99); Magnesium, Blood 1.5 mg/dL (1.6-2.4); Phosphorus, Blood 3.2 mg/dL (2.5-4.9); Potassium, Blood 3.4 mmol/L (3.5-5.5); Sodium, Blood 141.0 mmol/L (136-145); Total Protein, Blood 5.8 g/dL (6.4-8.2)
[2025-01-24 07:18] VITALS: BP 127/87
[2025-01-24] MEDS ORDERED: Potassium Chl 20MEQ/Water100ML 100 ML IV STA (08:16)
[2025-01-24] MEDS ORDERED: Magnesium Sulf 2 GM/Water 50ML 50 ML IV ONE (08:20)
--- NOTE | 2025-01-24 09:05 | NUR ---
Shift Summary Please see notes made throughout the night.
[2025-01-24 11:16] VITALS: BP 149/111
--- NOTE | 2025-01-24 12:46 | NUR ---
NOTE PT GOT IV POTASSIUM AND MAGNESIUM REPLACED. NOTIFIED DR. JONES OF BLOOD CULTURE RESULTS. PT HAS SPEECH EVAL CONSULTED, SPEECH THERAPY NOT HERE ON WEEKEND, THIS RN ATTEMPTED TO CALL. BREAK RN REPORTED BEING PT RN YESTERDAY, CONCERNED ABOUT PT ASPIRATING. PT NOT WAKE ENOUGH TO EAT OR SWALLOW, NOTFIED DR. JONES, PT WAXES AND WANES WITH ALERTNESS. CONFUSED, FIGETY. DR. JONES DOWNGRADED DIET TO PUREED. CONSULTED PHARMACY DUE TO DOXYCYCLINE BEING LATE. PHARMACY GAVE OK TO GIVE AT 1159. BREAK RN INITIATED INFUSION. PHARMACY REPORTED "MED DOES NOT NEED TO BE RETIMED." MED BEING LATE D/T OTHER INFUSIONS. PT STILL IN TOUGH CUFFS FOR AGITATION, THRASHING IN BED, ATTEMPTING TO PULL LINES. PT IN BED, BED LOCKED, BED IN LOWEST POSITION, CALL LIGHT IN REACH.
[2025-01-24 16:24] VITALS: BP 134/89
--- NOTE | 2025-01-24 16:32 | NUR ---
PATIENT IN BILATERAL WRIST RESTRAINTS. CONTINUES TO TRASH IN BED AND PULL AGAINST RESTRAINTS. BEDSIDE NURSE CALLED THIS RN TO BEDSIDE: NOTED TO HAVE ABRASION TO LEFT WRIST BENEATH TOUGH CUFF. CALL TO IT QUALITY ASSURANCE ANALYST. NOTIFIED PROVIDER. HAS BEEN MEDICATED c PRN ZYPREXA AND ATIVAN AND CONTINUES TO ATTEMPT TO GET OOB. AGGRESSIVE c 1:1 SITTER. UNABLE TO MAINTAIN RESTRAINTS D/T UNINTENTIONAL SELF HARM. ORDER OBTAINED TO CHANGE HALDOL FROM IM TO IV 5MG Q4H PRN. READ BACK AND VERIFIED BY PROVIDER.
[2025-01-24] MEDS ORDERED: Haloperidol Lactate Inj. 5 MG/ML Injection IV PRN (16:35)
[2025-01-24 19:24] VITALS: BP 118/68
--- NOTE | 2025-01-24 20:24 | NUR ---
SHIFT SUMMARY PT A&OX1. PT ADMITTED DUE TO SEVERE SEPSIS. PT ON TELE. TELE REPORTS TACHYCARDIC AT TIMES, PT NOT SUSTAINING 125, ONLY WITH AMBULATION. NO PAIN NOTED. PT CONT TO THRASH IN BED AND PULL AGAINST RETRAINT TODAY. THIS RN NOTED ABRAISION TO L WRIST BENEATH TOUGH CUFF. THIS RN NOTIFIED PIE ICER MACHINE, PHOTO IN CHART. PT CONT TO ATTEMPT TO GET OOB AND AGITATED. UNABLE TO MAINTAIN RESTAINTS. 1:[address] RESTRAINT D/C AT 1625. DUE TO UNABLE TO MAINTAIN RESTRAINT DUE TO UNINTENTIONAL HARM. ORAL CARE COMPLETE, SUCTION SET UP, PERWICK IN PLACE DUE TO INC. NS RUNNING AT 100ML/HR. FRIENDS AT BEDSIDE TODAY. PT IN BED, BED IN LOWEST POSITION, LOCKED, CALL LIGHT IN REACH.
[2025-01-24] MEDS ORDERED: DiphenhydrAMINE HCl 50 MG/ML 1ML Vial IM ONE (20:50)
[2025-01-24] MEDS ORDERED: LORazepam 2 MG/ML 1ML Injection IM ONE (20:55)
--- NOTE | 2025-01-24 21:00 | NUR ---
Physician Contacted: IM Ativan & Benadryl Patient impulsive and confused. Getting OOB unsafely. Sitter at bedside trying to keep patient from falling but patient is pushing sitter away. Increasing agitated when sitter tries to intervene w/ patient's unsafe behaviors. Visual hallucinations noted as well. Patient seen trying to pet a dog that is not even there. Pt connected to multiple IV lines, tele, oxygen cord, and male wicking system. Not responding well to redirections. At this point, patient had already taken his nightly dose of seroquel and it was too soon for zyprexa. Per Migdalia Lombardi RN, 5mg Haldol IV was given around 1700 with little to no effect as well. Had just started doxycycline piggy backed on NS @ 100, walked out of the room, then heard sitter loudly say that patient just pulled his IV. Unable to flush second IV (the last one) so called SABAS Ye to discuss current dilemma. Received T.O. from SABAS Ye to give 25mg IM Benadryl and 1mg IM ativan, both x one now. Orders entered.
--- NOTE | 2025-01-24 23:40 | NUR ---
Physician Contacted: Recommended transfer to ICU for sedation & treatment Ativan + Benadryl IM given without improvement in agitation. Also gave additional IV PRNs after second IV (took 4 staff members to hold patient down for this IV tp be established at the direction of Kb Pearce, oyster preparer. Patient was surely drowsy and in and out of this state, but kept pulling lines and being fidgeing, even kicking and punching staff for trying to prevent pt getting a hold of these lines. Eventually this new line became infiltrated too from patient thrashing and pulling at everything. Made several attempts to establish another IV access but difficulty finding vein. Called SABAS Ye to discuss recommendation of ICU transfer + precedex drip. Dr. Stevie Stewart at the bedside to assess patient and felt that he may not requrie precedex right this minute, but will eventually require it and maybe soon thus a verbal order to transfer to ICU was given by Dr. Stewart. Had Tj Rodriges enter order d/t presently busy w/ patient. ICU bed obtained. Will report to ICU soon.
--- NOTE | 2025-01-25 00:55 | NUR ---
SHIFT EVENT PT ARRIVES TO ICU AT 2350. POWERGLIDE LINE WAS INITIATED IN [place]. PT IS DROWSY AND SLEEPING IN ROOM AT THIS TIME. DISCUSSED PT NEEDS WITH PHYSICIAN. THIS NURSE TOLD THAT BEGINNING PRECEDEX WAS NOT REQUIRED AT THIS TIME AND PT TRANSFER BACK TO FLOOR WOULD BE ACCEPTABLE.
--- NOTE | 2025-01-25 02:31 | NUR ---
HOSPITALIST NOTIFIED THAT PT CAME UP FORM ICU WITH BILATERAL SOFT WRIST RESTRAINTS DUE TO PT HAVING NEW POWERGLIDE PLACED IN [place], AND THAT PT HAS PULLED AT LEAST 5 LINES OVER PAST FEW DAYS. HOSPITALIST AGREED AND ORDER FOR NON VIOLENT RESTRAINTS PLACED AND INTERVENTION IN PLACE.
--- NOTE | 2025-01-25 02:33 | NUR ---
Transfer to and from ICU Around 2349, sent patient down to ICU 3 after giving report to Cassie Pepper, OPHTHALMOLOGIST d/t aggressive behavior w/ staff which has been hindering care. All IV's have either been pulled or infiltrated d/t thrashing in bed and swinging punches at staff for trying to keep pt safely in bed and IV's in. At this time, did notify of transfer to ICU. Around 0130, was notified that patient will be brought back. Patient arrived w/ zosyn infusing via power glide to [place], placed in ICU. Drowsy, but remains fidgety and pulling at lines. Had Tj Rodriges, RN call for restraint order (bilateral wrist restraint, see other note). Bed alarm on. Sitter at bedside as of now.
[2025-01-25 02:43] VITALS: BP 128/84
[2025-01-25 05:13] LABS: BASOPHILS ABSOLUTE AUTO 0.07 K/mm3 (0.00-0.23); BASOPHILS PERCENT AUTO 1 % (0-2); EOSINOPHILS ABSOLUTE AUTO 0.14 K/mm3 (0.00-0.68); EOSINOPHILS PERCENT AUTO 2 % (0-6); Hematocrit 30.5 % (37.0-53.0); Hemoglobin 9.9 g/dL (13.5-17.5); IMMATURE GRAN ABSOLUTE AUTO 0.12 K/mm3 (0.00-0.10); IMMATURE GRAN PERCENT AUTO 2 % (0-1); LYMPHOCYTES ABSOLUTE AUTO 2.13 K/mm3 (0.84-5.20); LYMPHOCYTES PERCENT AUTO 28 % (21-46); MONOCYTES ABSOLUTE AUTO 0.83 K/mm3 (0.16-1.47); MONOCYTES PERCENT AUTO 11 % (4-13); Mean Corpuscular HGB Conc 32.5 g/dL (31.5-36.5); Mean Corpuscular Volume 97 fL (80-100); NEUTROPHILS ABSOLUTE AUTO 4.33 K/mm3 (1.96-9.15); NEUTROPHILS PERCENT AUTO 57 % (41-73); NRBC ABSOLUTE 0.00 K/mm3 (0.00-0.02); NRBC Auto 0.0 /100 WBC (0.0-0.2); Platelet Count 287 K/mm3 (150-400); RDW Coefficient Variation 14.5 % (11.7-14.2); RDW Standard Deviation 52.3 fL (35.1-46.3)
[2025-01-25 05:40] LABS: Anion Gap 6.0 mmol/L (3-11); Blood Urea Nitrogen 8.0 mg/dL (8-24); CO2, Blood 31.0 mmol/L (21-32); Calcium, Blood 8.1 mg/dL (8.5-10.1); Chloride, Blood 107.0 mmol/L (98-108); Creatinine, Blood 0.62 mg/dL (0.60-1.20); Glucose, Blood 105.0 mg/dL (70-99); Potassium, Blood 3.1 mmol/L (3.5-5.5); Sodium, Blood 141.0 mmol/L (136-145)
--- NOTE | 2025-01-25 06:22 | NUR ---
[id number] PT BEGAN THE EVENING CONFUSED ATTEMPTING TO GET OUT OF BED AND STRIPPING OFF CLOTHES AND BLANKETS, CONTINUING TO PULL AT EXTERNAL CATHETER, IV, AND O2 NC. PT AT THIS TIME BEGAN STATING HE WAS GOING TO KILL THE STAFF MEMBERS IN THE ROOM AND BEGAN KICKING AND SWINGING EXTREMITIES AND TRYING TO BITE AT HIS IV AND OTHER STAFF MEMBERS. REDIRECTION DID NOT WORK FOR HIM AND HE WAS GIVEN ATIVAN AND HALDOL. THIS DID NOT WORK AND PT THEN RIPPED OUT HIS IV. HE WAS PROMPTLY GIVEN ANOTHER IV AND BEGAN TO GO IN AND OUT OF SLEEP. [id number] PT REMOVED HIS SECOND IV OF THE SHIFT AND WAS SENT TO ICU TO CONSIDER A PRECEDEX DRIP, PT RECEIVED A POWERGLIDE AND WAS PROMPTLY RETURNED TO MED FLOOR WHERE HE BEGAN TO KICK AND BITE ONCE AGAIN AND WAS GIVEN ATIVAN AND HALDOL AGAIN PER JUN. PT BEGAN TO REST COMFORTABLY AFTER THIS ~0345
[2025-01-25] MEDS ORDERED: Magnesium Sulf 2 GM/Water 50ML 50 ML IV STA (08:23)
[2025-01-25 15:06] VITALS: BP 150/82
--- NOTE | 2025-01-25 18:03 | NUR ---
SHIFT SUMMARY PT ORIENTED TO SELF ONLY, VSS, NON-TELE, 2 L O2. SITTER IN PLACE D/T IMPULSIVE AND AGGRESSIVE BEHAVIORS. MEDICATED PER EMAR FOR AGGITATION, PT SLEPT THROUGH AM SO DID NOT GIVE ORAL MEDICATIONS. ELECTROLYTES REPLACED IV PER ORDERS. CONT/INCONTINENT OF URINE T/O SHIFT. PT MEDICATED FOR PAIN WITH PRN TYLENOL AND DICLOFENAC SODIUM CREAM, PT MORE CALM POST MEDICATION.
[2025-01-25 19:31] VITALS: BP 131/87
--- NOTE | 2025-01-26 05:00 | NUR ---
SHIFT SUMMARY; EVEN WITH 1:1 SITTER, HAD TO CALL HOSPITALIST AT 2230, FOR ORDER FOR WRIST RESTRAINTS. ALL PRN MEDS GIVEN, WITH LITTLE CHANGE IN BEHAVIOR. STAFFING HAD TO PULL MY SITTER AT 0300. PATIENT MUMBLES SOFTLY.
[2025-01-26 06:49] LABS: BASOPHILS ABSOLUTE AUTO 0.07 K/mm3 (0.00-0.23); BASOPHILS PERCENT AUTO 1 % (0-2); EOSINOPHILS ABSOLUTE AUTO 0.19 K/mm3 (0.00-0.68); EOSINOPHILS PERCENT AUTO 2 % (0-6); Hematocrit 32.0 % (37.0-53.0); Hemoglobin 10.4 g/dL (13.5-17.5); IMMATURE GRAN ABSOLUTE AUTO 0.17 K/mm3 (0.00-0.10); IMMATURE GRAN PERCENT AUTO 2 % (0-1); LYMPHOCYTES ABSOLUTE AUTO 2.29 K/mm3 (0.84-5.20); LYMPHOCYTES PERCENT AUTO 27 % (21-46); MONOCYTES ABSOLUTE AUTO 0.89 K/mm3 (0.16-1.47); MONOCYTES PERCENT AUTO 10 % (4-13); Mean Corpuscular HGB Conc 32.5 g/dL (31.5-36.5); Mean Corpuscular Volume 99 fL (80-100); NEUTROPHILS ABSOLUTE AUTO 4.97 K/mm3 (1.96-9.15); NEUTROPHILS PERCENT AUTO 58 % (41-73); NRBC ABSOLUTE 0.00 K/mm3 (0.00-0.02); NRBC Auto 0.0 /100 WBC (0.0-0.2); Platelet Count 300 K/mm3 (150-400); RDW Coefficient Variation 14.3 % (11.7-14.2); RDW Standard Deviation 52.0 fL (35.1-46.3)
[2025-01-26 06:57] LABS: Alanine Aminotransfer (ALT/SGP 21.0 U/L (12-78); Albumin, Blood 1.6 g/dL (3.4-5.0); Albumin/Globulin Ratio 0.4 (0.8-1.8); Anion Gap 5.0 mmol/L (3-11); Aspartate Aminotrans (AST/SGOT 34.0 U/L (12-37); Bilirubin, Total 0.4 mg/dL (0.1-1.0); Blood Urea Nitrogen 8.0 mg/dL (8-24); CO2, Blood 33.0 mmol/L (21-32); Calcium, Blood 7.9 mg/dL (8.5-10.1); Chloride, Blood 108.0 mmol/L (98-108); Creatinine, Blood 0.57 mg/dL (0.60-1.20); Globulin, Blood 4.3 g/dL (2.2-4.0); Glucose, Blood 98.0 mg/dL (70-99); Potassium, Blood 3.4 mmol/L (3.5-5.5); Sodium, Blood 143.0 mmol/L (136-145); Total Protein, Blood 5.9 g/dL (6.4-8.2)
[2025-01-26 09:43] VITALS: BP 145/84
--- NOTE | 2025-01-26 16:29 | NUR ---
ROUNDED ON PT. DISCUSSED CASE WITH CURED MEAT PACKING SUPERVISOR AT BEDSIDE. SHE REPORTED INCREASED CONFUSION SINCE MY LAST VISIT. PATIENT HAS NOT BEEN EATING WELL THE LAST FEW DAYS. HE HAD RESTRAINTS IN PLACE BUT WAS NOT CURRENTLY TIED, HE WAS ASLEEP AND VISUALLY MONITORED. DISCUSSED CASE WITH PROVIDER. UPDATED HER ON DISCUSSIONS ABOUT CASE FROM LAST WEEK. MAIN FOCUS IS SAFE PLACMENT FOR PATIENTS HIS MENTATION HAS DECLINED AND HIS SPOUSE IS UNABLE TO PROVIDE CARE FOR HIM. HE REQUIRES HEAVY ASSISTANCE AT THIS TIME. DISCUSSED WITH PROVIDER AND CC AT MEETING
--- NOTE | 2025-01-26 18:18 | NUR ---
SHIFT SUMMARY PT SLEPT THROUGH MOST OF SHIFT, AWOKEN FOR MEALS AND URINATION. BECAME AGGITATED THIS EVENING, PO SEROQUIL AND IM ZYPREXA GIVEN WITH GOOD EFFECT. PER PT BASELINE IS AGGITATED AND SUNDOWNS EVERY NIGHT. NO BM YESTERDAY OR TODAY, NONE CHARTED SINCE 01/21. SITTER AT BEDSIDE PROVIDING CARE.
[2025-01-26 19:15] VITALS: BP 122/68
[2025-01-27 03:52] VITALS: BP 142/75
--- NOTE | 2025-01-27 06:33 | NUR ---
MEDICAL TECHNOLOGIST HEMATOLOGY SUMMARY PT A&OX1 (SELF ONLY), VSS, EXCEPT HTN. ABLE TO COMMUNICATE MOST NEEDS WITH BASIC COMMANDS, ALTHOUGH, NEEDS REGULAR ATTENDS CHECKS. PT HAS BEEN ASLEEP MOST OF THE NIGHT. CHEST RISE/RESPIRATIONS NOTED. INTERMITTENT AGITATION, ALTHOUGH EASILY REDIRECTABLE. NO PRN MEDICATIONS NEEDED THIS SHIFT FOR AGITATION. PG [place] LEVY. 1:1 SITTER AT BEDSIDE, BED RAILS UP X 3, BED IN LOWEST POSITION, BED WHEELS LOCKED, PERSONAL BELONGINGS AND CALL LIGHT WITHIN REACH FOR SAFETY.
[2025-01-27 06:35] LABS: Anion Gap 8.0 mmol/L (3-11); Blood Urea Nitrogen 11.0 mg/dL (8-24); CO2, Blood 32.0 mmol/L (21-32); Calcium, Blood 7.5 mg/dL (8.5-10.1); Chloride, Blood 106.0 mmol/L (98-108); Creatinine, Blood 0.66 mg/dL (0.60-1.20); Glucose, Blood 97.0 mg/dL (70-99); Magnesium, Blood 1.8 mg/dL (1.6-2.4); Potassium, Blood 4.1 mmol/L (3.5-5.5); Sodium, Blood 142.0 mmol/L (136-145)
[2025-01-27 07:21] VITALS: BP 152/85
[2025-01-27] MEDS ORDERED: Pantoprazole Sodium 40 MG Injection IV SCH (09:00)
[2025-01-27 15:32] VITALS: BP 135/85
--- NOTE | 2025-01-27 19:14 | NUR ---
SHIFT SUMMARY PT ORIENTED TO SELF ONLY, MORE ALERT FOR MOST OF SHIFT WITH TWO PERIODS OF AGGITATION THAT WERE NON-REDIRECTABLE WITHOUT PRN ZYPREXA. SEROQUIL AND ZYPREXA GIVEN X2 WITH GOOD EFFECT. SITTER AT BEDSIDE FOR CARES. 2 PA TO BSC FOR BMS, UP TO CHAIR FOR ABOUT AN HOUR. PT WEANED OFF O2, SAT 94% ON ROOM AIR. PT NOW RESTING.
[2025-01-27 21:51] VITALS: BP 160/88
[2025-01-28 07:15] VITALS: BP 158/90
--- NOTE | 2025-01-28 07:57 | NUR ---
SENIOR BENEFITS SPECIALIST SUMMARY PT A&OX1. CONFUSED AND INTERMITTENTLY AGITATED. PT HAS BEEN AWAKE FOR MOST OF THE SHIFT TONIGHT. HAS NOT STOPPED TALKING TO "JOE" IN THE CORNER OF THE ROOM. NO ONE PRESENT IN ROOM BESIDES STAFF, NONE NAMED JOE. EARLY ON THIS SHIFT, PT TRIED TO GET OUT OF BED AND PULL AT LINES. ATTEMPTED REDIRECTION W/ CUSTOMER ACCOUNTS ADVISOR TO NO EFFECT. PT ENDED UP PUNCHING AUTHOR. WAS EVENTUALLY PLACED INTO SOFT RESTRAINTS W/ HELP OF SECURITY. ZYPREXA ADMIN 1X W/ GOOD EFFECT. REMAINS IN RESTRAINTS. 0600 ABX HELD D/T INCREASING AGITATION. STARTED BY AM RN. BED RAILS UP X 3, BED IN LOWEST POSITION, BED WHEELS LOCKED, PERSONAL BELONGINGS AND CALL LIGHT WITHIN REACH FOR SAFETY.
[2025-01-28 19:29] VITALS: BP 106/64
--- NOTE | 2025-01-28 21:52 | NUR ---
ASSISTED CHRISTINE HERRERARN WITH PT. PT HAS RIPPED APART HIS MIRIAN VEST AND NEEDED VEST TO BE REPLACED. PT SOMEWHAT COOPERATIVE WITH SITTING FORWARD, AND QUICKLY BECOMES CONFUSED AND STARTS TO RESIST INTERVENTION. PT HAD BEEN ABLE TO EXPRESS THAT HE USE TO WORK FOR [employer], AND WORK IN [employer]. THIS CONVERSATION HELPED TO KEEP PT CALM. PT BECOMES AGITATED AND DEMONSTRATES THAT HE DID NOT KNOW HE WAS IN THE HOSPITAL AND THAT HE BELIEVED HE WAS AT HIS HOME. NEW MIRIAN VEST PLACED AND PT'S ATTENDS CHANGED. PT HAS BEEN INCONTINENT TO STOOL AND TO URINE.
[2025-01-29 04:57] VITALS: BP 141/92
--- NOTE | 2025-01-29 05:33 | NUR ---
MACHINE ADJUSTER LEADER CASE TRIM SUMMARY PT A&OX1, VSS, EXCEPT HTN. HAS BEEN AWAKE FOR THE MAJORITY OF THE NIGHT. CONTINUES TO TALK TO "JOE" OR "MOM" IN THE CORNER OF THE ROOM. NO ONE IN ROOM BESIDES STAFF, NONE NAMED JOE. PT RIPPED MIRIAN VEST TWICE AND ATTEMPTED TO KICK, PUNCH, AND BITE STAFF MEMBERS ASSISTING. ORDER OBTAINED TO SWITCH TO SOFT BUE WRIST RESTRAINTS. PT REMAINS ON RESTRAINTS. PT REFUSED TO TAKE ANY PO MEDICATIONS AFTER NIGHT TIME MEDICATION PASS. STATED WE WERE TURNING HIM INTO A DRUG ADDICT. ZYPREXA IM ADMIN X 2 WITH MILD EFFECT. BED RAILS UP X 3, BED IN LOWEST POSITION, BED WHEELS LOCKED, BED ALARM ON, PERSONAL BELONGINGS AND CALL LIGHT WITHIN REACH FOR SAFETY.
[2025-01-29 07:38] VITALS: BP 101/74
[2025-01-29] MEDS ORDERED: Lactobacil 2-S.Thermo-Bifido 1 1 Cap PO SCH (09:00)
[2025-01-29] MEDS ORDERED: Seroquel Xr50 MG PO (11:35)
[2025-01-29 12:50] LABS: Campylobacter Sp Not Detected (NOT DETECT); E. Coli O157 Not Detected (NOT DETECT); Enteroaggregative E. coli-EAEC Not Detected (NOT DETECT); Enteropathogenic E. coli-EPEC Not Detected (NOT DETECT); Enterotoxigenic E. coli-ETEC Not Detected (NOT DETECT); Salmonella Sp Not Detected (NOT DETECT); Shiga Toxin-prod E. coli-STEC Not Detected (NOT DETECT); Shigella/Enteroin E. coli-EIEC Not Detected (NOT DETECT); Vibrio Sp Not Detected (NOT DETECT)
== END 2025-01-29 17:40 | disposition home health service (06) | DRG 871 ==
LOC: ER 06:56 → MEDS 09:47 → ICUE 01-24 23:46 → MEDS 01-25 01:26 → ENPENDDIS 01-29 11:04 → MEDS 01-29 17:40
PROVIDERS: Family Medicine; Hospitalist; Internal Medicine; Student in an Organized Health Care Education/Training Program; ADMIT Internal Medicine
DX: A41.9 Sepsis, unspecified organism (principal); G93.41 Metabolic encephalopathy; J18.9 Pneumonia, unspecified organism; J96.01 Acute respiratory failure with hypoxia; J69.0 Pneumonitis due to inhalation of food and vomit; E87.1 Hypo-osmolality and hyponatremia; E87.21 Acute metabolic acidosis; J44.0 Chronic obstructive pulmonary disease with (acute) lower respiratory infection; R44.0 Auditory hallucinations; I47.10 Supraventricular tachycardia, unspecified; B18.1 Chronic viral hepatitis B without delta-agent; F02.C3 Dementia in other diseases classified elsewhere, severe, with mood disturbance; F02.C4 Dementia in other diseases classified elsewhere, severe, with anxiety; F02.C11 Dementia in other diseases classified elsewhere, severe, with agitation; Z66 Do not resuscitate; Z51.5 Encounter for palliative care; Z78.1 Physical restraint status; I10 Essential (primary) hypertension; F43.10 Post-traumatic stress disorder, unspecified; E78.5 Hyperlipidemia, unspecified; Z96.651 Presence of right artificial knee joint; F17.210 Nicotine dependence, cigarettes, uncomplicated; R44.1 Visual hallucinations; R26.9 Unspecified abnormalities of gait and mobility; F12.90 Cannabis use, unspecified, uncomplicated; E87.6 Hypokalemia; R74.01 Elevation of levels of liver transaminase levels; E88.09 Other disorders of plasma-protein metabolism, not elsewhere classified; K21.9 Gastro-esophageal reflux disease without esophagitis; R65.20 Severe sepsis without septic shock; G30.9 Alzheimer's disease, unspecified; G40.909 Epilepsy, unspecified, not intractable, without status epilepticus; F31.9 Bipolar disorder, unspecified; Z99.3 Dependence on wheelchair; Z88.2 Allergy status to sulfonamides; Z88.8 Allergy status to other drugs, medicaments and biological substances; Z79.899 Other long term (current) drug therapy; Z87.39 Personal history of other diseases of the musculoskeletal system and connective tissue; Z86.73 Personal history of transient ischemic attack (TIA), and cerebral infarction without residual deficits; Z91.040 Latex allergy status; Z79.82 Long term (current) use of aspirin; Z79.51 Long term (current) use of inhaled steroids; Z88.1 Allergy status to other antibiotic agents; Z91.81 History of falling; Z23 Encounter for immunization
CPT/HCPCS: 0202U; 0528U; 36415; 70450; 71045; 71046; 72125; 80048; 80053; 80076; 81001; 82533; 82803; 83605; 83735; 83880; 84100; 84145; 84439; 84443; 84481; 84484; 85025; 85027; 87040; 87070; 87205; 87493; 87507; 93005; 93010; 94640; 94664; 94760; 96365; 96366; 96375; 97110; 97116; 97162; 97165; 97530; 97535; 99285-25; A9270; C1751; J0696; J1200; J1630; J1650; J1885; J2060; J2470; J2543; J3373; J3475; J3480; J7030; J7040; J7050; J7060; J7120